=== PATIENT | male | born 1935 | race Caucasian/White ===

== ENCOUNTER 2018-08-04 17:48 | Emergency (ER) | payer MEDICARE, OTHER, SELFPAY ==
[2018-08-04 17:49] VITALS: BP 156/77; PULSE 84; RESP 18; TEMP 37.2; O2SAT 98; BMI 33.5
--- NOTE | 2018-08-04 18:44 | US_ITS ---
STUDY: VENOUS DOPPLER ULTRASOUND - LEFT LOWER EXTREMITY REASON FOR EXAM: Male, 83 years old. Swelling and redness of the calf. TECHNIQUE: Ultrasound evaluation of the deep vein system to include marcus-scale imaging and compression was performed. Marcus-scale imaging and Doppler sonographic evaluation, including duplex spectral analysis and qualitative color flow sonography, was performed. COMPARISON: None. FINDINGS: Common Femoral Vein: Normal compression, spontaneity and augmentation. Normal color Doppler. Common Femoral Vein/Greater Saphenous Junction: Normal compression. Femoral Proximal: Normal compression and color flow. Femoral Middle: Normal compression, spontaneity and augmentation. Normal color Doppler. Femoral Distal: Normal compression and color flow. Popliteal Vein: Normal compression, spontaneity and augmentation. Normal color Doppler. Posterior Tibial Vein: Normal compression Peroneal Vein: Normal compression US/Venous Duplex Imag/Limited/Uni IMPRESSION: Normal venous Doppler ultrasound of the lower extremity. Electronically Signed: Naheed Boggs MD at 19:55 EDT , Service support ,
--- NOTE | 2018-08-04 18:44 | ED.DCSUM_ITS ---
- ER Visit Summary Date of Service: 08/04/18 Chief Complaint: Left leg swelling and pain History of Present Illness: The patient is a 83 M who presents for 2 days of left lower leg swelling and pain. he has had gradually worsening swelling and redness of the left lower leg. He has had pain, worse when he starts ambulating or putting pressure on it, that gradually improves with movement. He denies any fever, chest pain, shortness of breath, or other complaints. He has no history of venous thromboembolism, recent surgery or travel, cancer. He is a former smoker. Patient has history of coronary artery disease status post stent, diabetes, hypertension. He had a cyst resected from the dorsum of the left foot 30 years ago but has had no problems with it since. Physical Examination: Vital signs: afebrile, hemodynamically stable, no hypoxia on room air General: well nourished, well developed, in no distress Skin: warm, dry, no rash, no pallor HEENT: normocephalic and atraumatic; PERRL, EOMI, moist mucous membranes Cardiovascular: regular rate and rhythm with soft systolic murmurs, 2+ pulses all distal extremities Respiratory: No increased work of breathing, lungs are clear to auscultation bilaterally, no rales, rhonchi or wheezing Abdominal: Abdomen is soft, nontender with normoactive bowel sounds, no guarding or rebound, no masses MSK: Moves all extremities, no deformities, normal strength, left lower leg is erythematous and warm with increased circumference compared to the right. 1+ pitting edema from the proximal lower leg to the dorsum of the foot. Well- healed scar on the dorsum of the distal foot. Sensation motor function intact. Neuro: Awake and alert, oriented ?4. No facial droop, sensation and motor function intact and symmetric Test Results: Abnormal Lab Results 08/04/18 08/04/18 08/04/18 18:58 18:58 18:58 WBC 7.9 RBC 3.35 L Hgb 10.4 L Hct 32.7 L MCV 97.6 H MCH 31.0 MCHC 31.8 L RDW 15.0 H RDW Differential 53.6 H Plt Count 309 MPV 11.4 Immature Gran % (Auto) 0.100 Neut % (Auto) 76.0 H Lymph % (Auto) 8.6 L [place] % (Auto) 10.7 H Eos % (Auto) 4.3 Baso % (Auto) 0.3 Absolute Neuts (auto) 6.0 Absolute Lymphs (auto) 0.68 L Total Counted Not Reportable PT 14.3 INR 1.1 APTT 34.9 Sodium 141 Potassium 4.0 Chloride 107 Carbon Dioxide 28.0 Anion Gap 6 BUN 30 H Creatinine 1.35 H Estim Creat Clear Calc 45.71 Est GFR (MDRD) Af Amer 65 Est GFR (MDRD) Non-Af 54 L BUN/Creatinine Ratio 22.2 H Glucose 130 H Lactic Acid Calcium 8.7 Total Bilirubin 0.30 AST 16 ALT 19 Alkaline Phosphatase 78 Total Protein 7.1 Albumin 3.2 Globulin 3.9 Albumin/Globulin Ratio 0.8 L Urine Color Urine Clarity Urine pH Ur Specific [place] Urine Protein Urine Glucose (UA) Urine Ketones Urine Occult Blood Urine Nitrite Urine Bilirubin Urine Urobilinogen Ur Leukocyte Esterase Urine RBC Urine WBC Ur Squamous Epith Cells Urine Bacteria Urine Mucus 08/04/18 08/04/18 18:58 19:08 WBC RBC Hgb Hct MCV MCH MCHC RDW RDW Differential Plt Count MPV Immature Gran % (Auto) Neut % (Auto) Lymph % (Auto) [place] % (Auto) Eos % (Auto) Baso % (Auto) Absolute Neuts (auto) Absolute Lymphs (auto) Total Counted PT INR APTT Sodium Potassium Chloride Carbon Dioxide Anion Gap BUN Creatinine Estim Creat Clear Calc Est GFR (MDRD) Af Amer Est GFR (MDRD) Non-Af BUN/Creatinine Ratio Glucose Lactic Acid 1.7 Calcium Total Bilirubin AST ALT Alkaline Phosphatase Total Protein Albumin Globulin Albumin/Globulin Ratio Urine Color Yellow Urine Clarity Clear Urine pH 5.0 Ur Specific [place] 1.015 Urine Protein 30 H Urine Glucose (UA) Normal Urine Ketones Negative Urine Occult Blood Negative Urine Nitrite Negative Urine Bilirubin Negative Urine Urobilinogen Normal Ur Leukocyte Esterase 25 H Urine RBC 0 SEEN Urine WBC 0 SEEN Ur Squamous Epith Cells 0 SEEN Urine Bacteria 0 SEEN Urine Mucus 0 SEEN Clinical Impression(s) from Imaging Studies Venous Duplex 08/04/18 18:44 IMPRESSION: Normal venous Doppler ultrasound of the lower extremity. Electronically Signed: Naheed Boggs MD at 19:55 EDT , Service support , Medications Given Discontinued Medications Cephalexin (Keflex) 500 mg PO X1 ONE Stop: 08/04/18 21:52 Last Admin: 08/04/18 22:04 Dose: 500 mg Emergency Department Course and Treatment: Patient was offered and declined any pain medication, as he is not currently in pain. Patient's presentation is concerning for DVT versus cellulitis. Ultrasound was obtained and was negative for DVT. Lab work obtained showing no leukocytosis, normal electrolytes, negative urine for infection, normal lactate. Patient's workup showed no signs of systemic infection. Given the localized cellulitis without any evidence of abscess, patient was started on Keflex and instructed to follow-up with his primary care doctor for reevaluation within 2 days. He is to return if he begins developing any systemic symptoms or is worsening rather than improvement of the lower extremity. Patient discharged home Treatment Plan: [] Disposition: [] Impression: Left lower extremity cellulitis This note was generated with [employer] dictation software. It may contain incorrect words, spelling, and punctuation that were not noted in review of the chart prior to signing ED Disposition - Plan for ED Patient: Disposition: Home or Assisted Living Chief Complaint: Cellulitis Instructions: Discharge Instructions for Cellulitis, ED Infec Skin Cellulitis Prescriptions: Cephalexin [Keflex] 500 mg PO Q6 #40 cap Referrals: Apurva Elkins [Primary Care Provider] - 2 Days Additional Instructions: Take the antibiotics for your skin infection as prescribed. Do not miss any doses. Take the full 10 days even if you are feeling better before then, unless a doctor tells you to stop. If you develop a high fever, began having any worsening symptoms, or do not notice improvement within 3 days, please return to the emergency department for reevaluation immediately. Follow-up with your doctor in 2 days for a recheck of your leg. If you have any worsening of your condition or any new concerning symptoms, please return immediately to the emergency department for another evaluation.
[2018-08-04 19:11] LABS: Bacteria 0 SEEN /hpf (None Seen); Mucous, Urine 0 SEEN /hpf (<or=2+); Red Blood Cells-Urine 0 SEEN /hpf (0-5); Squamous Epithelial Cells - UA 0 SEEN /hpf (0-5); White Blood Cells 0 SEEN /hpf (0-5)
[2018-08-04 19:13] LABS: Color, Urine Yellow (Yellow); Glucose, Dipstick Normal (Normal); Ketone-Dipstick Negative (Negative); Leukocyte Esterase-Dipstick 25 /ul (Negative); Nitrite-Dipstick Negative (Negative); Occult Blood-Urine Negative /ul (Negative); Protein-Dipstick 30 mg/dl (Negative); Specific Gravity, Urine 1.015 (1.002-1.030); Urine Bilirubin Dipstick Negative (Negative); Urine Clarity Clear (Clear); Urine Urobilinogen Normal (Normal)
[2018-08-04 19:26] LABS: ALB/GLOB Ratio 0.8 RATIO (0.9-2.4); AST(SGOT) 16 U/L (15-37); Alanine Aminotransfer ALT/SGPT 19 U/L (16-61); Albumin, Serum 3.2 g/dL (3.2-5.0); Alkaline Phosphatase 78 U/L (45-117); Anion Gap 6 (5-15); BUN 30 mg/dL (7-18); BUN/Creat Ratio 22.2 RATIO (10-20); Calcium,Total 8.7 mg/dL (8.5-10.1); Chloride 107 mmol/L (98-107); Creatinine, Serum 1.35 mg/dL (0.70-1.30); EST Glomerular Filtration Rate 54 mL/min (>60); Est Glom Filt Rate - Afr Amer 65 mL/min (>60); Estimated Creatinine Clearance 45.71 ml/min; Globulin 3.9 g/dL (2.2-4.2); Glucose 130 mg/dL (74-106); Protein, Total 7.1 g/dL (6.4-8.2); Sodium Level 141 mmol/L (136-145)
[2018-08-04 19:35] LABS: Lactic Acid 1.7 mmol/L (0.4-2.0)
[2018-08-04 19:39] LABS: Absolute Lymphocyte Count 0.68 X10^3/ul (0.83-4.51); Basophil# 0.02 X10^3/uL; Basophil% 0.3 % (0-1); Eosinophil# 0.34 X10^3/uL; Eosinophils% 4.3 % (0-5); Hematocrit 32.7 % (40-54); Hemoglobin 10.4 g/dl (13.0-16.5); Lymphocyte # 0.68 X10^3/ul (4.0); Lymphocyte % 8.6 % (19-41); Mean Corp Hgb Conc 31.8 g/gl (32-36); Mean Corpuscular Volume 97.6 fL (80-94); Mean Platelet Vol. 11.4 fl (6.2-12.0); Monocyte# 0.84 X10^3/uL; Monocyte% 10.7 % (0-10); Neutrophil # 5.98 X10^3/uL (2.7-7.7); Platelet Count 309 K/mm3 (150-450); RBC Distribution Width SD 53.6 fl (35.1-43.9); Red Blood Count 3.35 M/mm3 (4.6-6.2); White Blood Count 7.9 K/mm3 (4.4-11.0)
[2018-08-04 19:41] LABS: POSITIVE COUNT NO; POSITIVE DIFFERENTIAL NO; POSITIVE MORPHOLOGY NO
[2018-08-04 19:42] LABS: Partial Thromboplast Time 34.9 Seconds (24.1-36.2)
[2018-08-04 19:52] VITALS: TEMP 36.7
[2018-08-04 19:53] VITALS: BP 123/68; PULSE 83; RESP 16; O2SAT 98
[2018-08-04 19:54] LABS: International Normalized Ratio 1.1; Prothrombin Time (Protime)PT. 14.3 SECONDS (11.7-14.9)
[2018-08-04 20:06] VITALS: PULSE 77; RESP 18
[2018-08-04 21:25] VITALS: BP 123/65; PULSE 77; RESP 17; O2SAT 98
--- NOTE | 2018-08-04 21:51 | ED.DEP ---
ED Disposition - Plan for ED Patient: Chief Complaint: Cellulitis Instructions: Discharge Instructions for Cellulitis, ED Infec Skin Cellulitis Prescriptions: Cephalexin [Keflex] 500 mg PO Q6 #40 cap Referrals: Apurva Elkins [Primary Care Provider] - 2 Days Additional Instructions: Take the antibiotics for your skin infection as prescribed. Do not miss any doses. Take the full 10 days even if you are feeling better before then, unless a doctor tells you to stop. If you develop a high fever, began having any worsening symptoms, or do not notice improvement within 3 days, please return to the emergency department for reevaluation immediately. Follow-up with your doctor in 2 days for a recheck of your leg. If you have any worsening of your condition or any new concerning symptoms, please return immediately to the emergency department for another evaluation.
[2018-08-04] MEDS: Cephalexin 250 MG Capsule 500 MG PO (22:04)
[2018-08-04 22:16] VITALS: BP 131/78; PULSE 68; RESP 16; O2SAT 99
== END 2018-08-04 22:16 | disposition home or self-care (01) ==
PROVIDERS: Emergency Provider Emergency Medicine; Family Provider Nurse Practitioner; PCP Nurse Practitioner
DX: L03.116 Cellulitis of left lower limb (principal); I25.10 Atherosclerotic heart disease of native coronary artery without angina pectoris; I10 Essential (primary) hypertension; E11.9 Type 2 diabetes mellitus without complications; I25.2 Old myocardial infarction; Z79.82 Long term (current) use of aspirin; Z79.4 Long term (current) use of insulin; Z79.899 Other long term (current) drug therapy; Z95.5 Presence of coronary angioplasty implant and graft; Z87.891 Personal history of nicotine dependence
CPT/HCPCS: 80053; 81001; 83605; 85025; 85610; 85730; 87040; 87086; 87088; 93971; 99285; A4216

== ENCOUNTER 2019-05-16 11:17 | Observation (INO) | payer MEDICARE, OTHER, SELFPAY ==
[2018-10-11 09:19] VITALS: BMI 34.2
[2019-05-16] VITALS (13 sets, daily range): BP systolic 123–149; BP diastolic 48–75; PULSE 57–71; RESP 13–18; TEMP 36.3–36.9; O2SAT 98–100; BMI 34.3; BMI 33.8
--- NOTE | 2019-05-16 11:26 | EKG12_ITS ---
Test Reason : CP Blood Pressure : / mmHG Vent. Rate : 071 BPM Atrial Rate : 071 BPM P-R Int : 192 ms QRS Dur : 142 ms QT Int : 412 ms P-R-T Axes : 070 -47 066 degrees QTc Int : 447 ms Normal sinus rhythm Right bundle branch block Left anterior fascicular block Bifascicular block Abnormal ECG Confirmed by CARLTON VALDOVINOS, MARBIN ([id number]), editor in chief newspaper VLADISLAV HART ([id number]) on 05/17/2019 1:41:56 PM Referred By: Rupali Wu Confirmed By:MARBIN VINCENT MD
--- NOTE | 2019-05-16 11:26 | ED.VIS.GEN ---
History of Present Illness Chief Complaint: Chest Pain Detail of Chief Complaint: Intermittent since according to Informant: Patient, Significant Other Limited by: - - Memory impairment. There is no history of dementia Onset: Days - First episode of chest discomfort was according to the . Patient is unable to recall. Context: Sudden Onset Timing: Intermittent Quality: Squeezing discomfort Location: Midsternal Current Severity: Present late pain-free Maximum Severity: Moderate Worsened by: Unknown Relieved by: Unknown Associated Symptoms: Patient acknowledges dyspnea. confirms. Also nausea Narrative: Patient is an elderly male with history of coronary disease and stent RCA 2014. He is not a good informant secondary to memory impairment. He states it is a squeezing discomfort located in the middle of the chest. Based on what he and his told me this is associated with nausea and dyspnea. states he is visibly dyspneic. He presently denies discomfort. He states he had squeezing pain prior to placement of stent in his RCA. He does have history of hypertension, type 2 diabetes, hypercholesterolemia. He does not have orthopnea or PND. He denies black or maroon stool. He denies abdominal discomfort. 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 Comment: Antihyperlipidemic (6) Obstructive sleep apnea Status: Chronic (7) Bilateral carotid bruits Status: Chronic (8) Type II diabetes mellitus Status: Chronic (9) Chronic kidney disease, stage II (mild) Status: Chronic Past Medical History - Allergies and Home Meds Allergies/Adverse Reactions: Allergies metronidazole [From Flagyl] Adverse Reaction (Verified 05/16/19 11:20) Nausea Primary Care Physician: Apurva Elkins NP-C [Primary Care Provider] - Prior records reviewed: Yes - Placement of stent Surgical History: angioplasty - 10/2015 [place] Lives: Spouse/ Significant Other Smoking Status: Former smoker Alcohol: None - Family History Maternal Family History: Family History (Last Reviewed 10/11/18 @ 09:23 by Pretty Rachel) Brother Hypertension MVP (mitral valve prolapse) Family History: Reports: No pertinent history Paternal Family History: Family History (Last Reviewed 10/11/18 @ 09:23 by Pretty Rachel) Brother Hypertension MVP (mitral valve prolapse) Family History: Reports: No pertinent history Review of Systems General: Denies: Chills, Fever, Sweats Eyes: Denies: Visual changes - bilaterally, Blurred Vision - bilaterally, Diplopia ENT: Denies: Rhinorrhea, Sore throat Cardiovascular: Reports: Chest pain. Denies: Palpitations, Heart racing Respiratory: Reports: Dyspnea, Dyspnea on exertion. Denies: Cough, Orthopnea, Paroxysmal nocturnal dyspnea Gastrointestinal: Reports: Nausea. Denies: Abdominal pain, Vomiting, Diarrhea, Melena, Hematochezia Genitourinary: Denies: Dysuria, Hematuria, Frequency Musculoskeletal: Denies: Back pain, Extremity Pain Skin: Denies: Rash, Wounds Neurological: Denies: Headache, Weakness, Numbness Hematologic: Denies: Easy bruising, Easy bleeding Allergy: Denies: Uticaria, Swelling of the mouth Physical Exam Vital Signs/Narrative: Vital Signs Temp Pulse Resp BP Pulse Ox 05/16/19 11:18 97.4 F L 69 13 149/74 H 99 Inital Vital Signs reviewed: Yes General: Well nourished, Well developed, No Acute Distress Head: Normocephalic, Atraumatic Eyes: Perrl, EOMI. Negative for: Pale conjunctiva, Scleral icterus ENT: Moist mucous membranes, No rhinorrhea, - - Carotid bruit noted right and left Neck: Supple, Nontender Cardiovascular: Regular rate, Regular rhythm, No murmurs, Normal S1, Normal S2 Respiratory: No distress, CTA bilaterally, Chest nontender Abdomen: Soft, Nontender, Nondistended, Normal bowel sounds Back: Nontender, Normal Inspection Extremities: Nontender, No edema Skin: Normal color, No rash Neurological: Alert, Oriented x3, Cranial nerves II-XII grossly intact, Normal Strength, Normal Sensation, - - Patient does not know his age. He does not know the month. states this is not new. Psychological: Normal affect, Normal Mood Diagnostic/Tx/Re-eval Impressions Chest X-Ray 05/16/19 11:40 IMPRESSION: Hyperinflation. Mild increased markings at the lung bases suggestive of atelectasis. Electronically Signed: Filipe Anguiano, at 12:28 EDT , Service support , 05/16/19 11:40 Chest PA and Lateral [RAD] Stat Laboratory Results 05/16/19 05/16/19 11:30 11:30 WBC 6.3 RBC 3.46 L Hgb 10.8 L Hct 33.4 L MCV 96.5 H MCH 31.2 MCHC 32.3 RDW 15.8 H RDW Differential 55.6 H Plt Count 237 MPV 11.5 Immature Gran % (Auto) 0.000 Neut % (Auto) 77.5 H Lymph % (Auto) 13.6 L [place] % (Auto) 4.9 Eos % (Auto) 3.5 Baso % (Auto) 0.5 Absolute Neuts (auto) 4.9 Absolute Lymphs (auto) 0.86 Total Counted Not Reportable Sodium 142 Potassium 4.3 Chloride 112 H Carbon Dioxide 27.0 Anion Gap 3 L BUN 40 H Creatinine 1.36 H Estim Creat Clear Calc 44.60 Est GFR (MDRD) Af Amer 65 Est GFR (MDRD) Non-Af 53 L BUN/Creatinine Ratio 29.4 H Glucose 136 H Calcium 9.0 Troponin I < 0.015 - Rhythm Strip Rhythm Strip: Sinus Rhythm Rate: 68 Ectopy: PAC(s) - EKG Initial EKG Interpretation: Sinus Rhythm - TN interval 292 ms. QRS durations 142 ms. QRS morphology is consistent with a right bundle branch block and probable left anterior fascicular block. The right bundle branch block is new since November 12, 2016. Ventricular rate is 71. - Medical Decision Making With multiple risk factors and history of coronary disease and description of midsternal chest tightness associated with dyspnea, dyspnea on exertion and nausea and similar to prior coronary disease patient will require further testing as an inpatient. Will contact his manager storage Dr. Moustapha Yates once all laboratory tests are resulted. Since nor the patient recalls whether he took his aspirin this morning he was given aspirin in department. Differential diagnosis angina, non-STEMI, noncardiac chest pain Patient's laboratory results revealed mild anemia and elevated creatinine. Dr. Yates his manager storage was paged. The hospitalist was paged. Since patient is pain-free normal troponin PCU status for chest pain evaluation/rule out. ED Disposition - Plan for ED Patient: Disposition: Acute Care Hospital [facility] Diagnosis: Substernal chest pain, History of coronary artery disease, History of type 2 diabetes mellitus, History of hypertension, History of hypercholesterolemia, Anemia, unspecified, Renal insufficiency Referrals: Apurva Elkins NP-C [Primary Care Provider] -
[2019-05-16] MEDS: Aspirin 81 MG TAB.CHEW 324 MG PO (11:36)
--- NOTE | 2019-05-16 11:40 | RAD_ITS ---
STUDY: X-RAY CHEST REASON FOR EXAM: Male, 84 years old. Chest pain. TECHNIQUE: PA and lateral views of the chest. COMPARISON: Comparison is made with prior study dated May 10, 2017. FINDINGS: EKG electrodes are seen. Mild degree of increased markings at the lung bases suggestive of atelectasis. Hyperinflation. There is no demonstrated pleural abnormality. Normal size heart. Normal mediastinum and jose. Normal visualized pulmonary arteries. There is atherosclerotic tortuosity of the aortic arch and descending thoracic aorta. There are diffuse degenerative changes of the visualized thoracic spine. Normal visualized ribs, clavicles, and shoulders. There is no demonstrated abnormality of the visualized soft tissue structures of the upper abdomen. RAD/Chest PA and Lateral IMPRESSION: Hyperinflation. Mild increased markings at the lung bases suggestive of atelectasis. Electronically Signed: Filipe Anguiano, at 12:28 EDT , Service support ,
[2019-05-16 11:42] LABS: Absolute Lymphocyte Count 0.86 X10^3/ul (0.83-4.51); Absolute Neutrophil Count 4.9 X10^3/uL (2.0-7.7); Basophil# 0.03 X10^3/uL; Basophil% 0.5 % (0-1); Eosinophil# 0.22 X10^3/uL; Eosinophils% 3.5 % (0-5); Hematocrit 33.4 % (40-54); Hemoglobin 10.8 g/dl (13.0-16.5); Lymphocyte # 0.86 X10^3/ul (4.0); Lymphocyte % 13.6 % (19-41); Mean Corp Hgb Conc 32.3 g/gl (32-36); Mean Corpuscular Hgb 31.2 pg (27.0-32.0); Mean Corpuscular Volume 96.5 fL (80-94); Mean Platelet Vol. 11.5 fl (6.2-12.0); Monocyte# 0.31 X10^3/uL; Monocyte% 4.9 % (0-10); Neutrophil # 4.91 X10^3/uL (2.7-7.7); Neutrophil % 77.5 % (47-70); Platelet Count 237 K/mm3 (150-450); RBC Distribution Width CV 15.8 % (11.6-14.6); RBC Distribution Width SD 55.6 fl (35.1-43.9); Red Blood Count 3.46 M/mm3 (4.6-6.2); White Blood Count 6.3 K/mm3 (4.4-11.0)
[2019-05-16 11:43] LABS: POSITIVE COUNT NO; POSITIVE DIFFERENTIAL NO; POSITIVE MORPHOLOGY NO
[2019-05-16 12:01] LABS: Anion Gap 3 (5-15); BUN 40 mg/dL (7-18); BUN/Creat Ratio 29.4 RATIO (10-20); Chloride 112 mmol/L (98-107); Creatinine, Serum 1.36 mg/dL (0.70-1.30); EST Glomerular Filtration Rate 53 mL/min (>60); Est Glom Filt Rate - Afr Amer 65 mL/min (>60); Glucose 136 mg/dL (74-106); Potassium 4.3 mmol/L (3.5-5.1); Sodium Level 142 mmol/L (136-145)
--- NOTE | 2019-05-16 12:59 | HP.PCM_ITS ---
History of Present Illness Date of Admission: 05/16/19 Chief Complaint: chest pain The patient is a 84 year old M with a past medical history as listed which includes CAD status post bare-metal stent placement to the RCA in 2014. He was admitted through the ED on 05/16/2019 with a complaint of chest pain. He states chest pain that started about 4 days prior to admission was retrosternal and pressure-like. He had associated shortness of breath and said chest pain worsened with mild exertion. He denied any palpitations or dizziness or lower extremity swelling. Review of systems otherwise negative. On admission in the ED, vitals were stable and chest x-ray showed only hyperinflation. EKG showed no acute ST changes and showed an incomplete right bundle branch block which was present from last year. Initial troponin was negative. He has been admitted to be managed for chest pain to rule out ACS. [] Past Medical History Past Medical History (Chronic Problems): Chronic Problems (Last Reviewed 10/11/18 @ 09:23 by Pretty Rachel) Essential hypertension (Chronic) Atherosclerotic heart disease of [place] coronary artery without angina pectoris (Chronic) PVD (peripheral vascular disease) (Chronic) Nonrheumatic aortic (valve) stenosis (Chronic) Anemia, unspecified (Chronic) Abnormal nuclear stress test (Chronic) half-way use of drug (Chronic) Antihyperlipidemic Obstructive sleep apnea (Chronic) Stented coronary artery (Chronic ~10/2015) PTCA with BMS to RCA 10/2015 Bilateral carotid bruits (Chronic) Type II diabetes mellitus (Chronic) Chronic kidney disease, stage II (mild) (Chronic) Hyperlipidemia (Chronic) Medical History: Medical History (Last Reviewed 10/11/18 @ 09:23 by Pretty Rachel) Essential hypertension (Chronic) I10 Atherosclerotic heart disease of [place] coronary artery without angina pectoris (Chronic) I25.10 PVD (peripheral vascular disease) (Chronic) I73.9 Nonrheumatic aortic (valve) stenosis (Chronic) I35.0 Anemia, unspecified (Chronic) D64.9 Abnormal nuclear stress test (Chronic) 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.899 Antihyperlipidemic Obstructive sleep apnea (Chronic) G47.33 Bilateral carotid bruits (Chronic) R09.89 Type II diabetes mellitus (Chronic) E11.9 Hyperlipidemia (Chronic) E78.5 History of GI bleed Z87.19 History of kidney stones Z87.442 ASHD (arteriosclerotic heart disease) (Inactive) I25.10 PCI with BMS to RCA 2014; Hypertension (Inactive) I10 Allergies metronidazole [From Flagyl] Adverse Reaction (Verified 05/16/19 11:20) Nausea Home Medications: Ambulatory Orders Medication Instructions Recorded Insulin Detemir [Levemir FlexPen] 5 units SC BREAKFAST 11/22/15 Linagliptin [Tradjenta] 5 mg PO QHS 11/22/15 Nitroglycerin (INPATIENT USE) 0.4 mg SUBLINGUAL Q5M PRN 11/22/15 [Nitrostat] Allopurinol [Zyloprim] 300 mg PO QHS 12/16/16 atorvastatin 80 mg tablet 80 mg PO QHS #90 tab 12/02/17 aspirin 81 mg tablet,delayed 81 mg PO DAILY 12/03/17 release furosemide 20 mg tablet 20 mg PO QDAY 12/03/17 metoprolol tartrate 25 mg tablet 25 mg PO BID #180 tab 12/21/17 colchicine 0.6 mg tablet 0.6 mg PO DAILY PRN 10/11/18 lisinopril 20 mg tablet 20 mg PO DAILY tab 10/11/18 metformin 1,000 mg tablet 500 mg PO BID tab 10/11/18 Aspirin/Acetaminophen/Caffeine 1 ea PO DAILY PRN PRN 05/16/19 [Excedrin Extra Strength Caplet] Donepezil HCl [Aricept] 10 mg PO DAILY 05/16/19 Surgical History: Surgical History (Last Reviewed 10/11/18 @ 09:23 by Pretty Rachel) Stented coronary artery (Chronic) Onset Date: ~10/2015 Z95.5 PTCA with BMS to RCA 10/2015 History of repair of rotator cuff Z98.890 Surgical History: angioplasty - 10/2015 [place] Psychiatric History: No pertinent psych hx Lives: Spouse/ Significant Other Smoking Status: Former smoker Alcohol: None - *Family History Maternal Family History: Family History (Last Reviewed 10/11/18 @ 09:23 by Pretty Rachel) Brother Hypertension MVP (mitral valve prolapse) History Items: No pertinent history Paternal Family History: Family History (Last Reviewed 10/11/18 @ 09:23 by Pretty Rachel) Brother Hypertension MVP (mitral valve prolapse) History Items: No pertinent history Review of Systems Constitutional: Denies: Chills, Fever, Malaise, Weakness, Weight Change, Fatigue Eyes: Denies: Blurred vision HEENT: Denies: Head Aches, Sinus Congestion, Sinus Drainage Cardiovascular: Denies: Chest Pain, Chest Pressure, Chest Tightness, Heaviness, Light Headedness, Orthopnea, Palpitations Respiratory: Denies: Cough, Shortness of Breath, Shortness of breath at rest, Shortness of breath upon exertion, Sputum production Gastrointestinal: Denies: Abdominal Pain, Nausea, Vomiting Genitourinary: Denies: Dysuria Musculoskeletal: Denies: Joint Pain, Joint Tenderness Skin: Denies: Rash, Wounds Neurological: Denies: Numbness, Tingling, Focal weakness Psychiatric: Denies: Anxiety, Depression, Homicidal Ideations, Suicidal Ideations Hematologic/ Lymphatic: Denies: Easy Bruising, Easy Bleeding VTE Information - Inpt Only VTE Present on Admission: No VTE Pharm Prophylaxis ordered?: Yes Patient Problems: Active and Suspected Problems (Last Reviewed 10/11/18 @ 09:23 by Pretty Rachel) Substernal chest pain (Acute) History of coronary artery disease (Acute) History of type 2 diabetes mellitus (Acute) History of hypertension (Acute) History of hypercholesterolemia (Acute) Renal insufficiency (Acute) - Physical Exam General: Alert, Cooperative, No apparent distress, - - mildly confused, but able to answer questions HEENT: Atraumatic, PERRLA, EOMI, Normocephalic Neck: Supple, No JVD, Negative Carotid Bruits Lungs: Clear to auscultation, Normal air movement Cardiovascular: Regular rate, Regular Rhythm, Normal S1, Normal S2, No murmurs Abdomen: Bowel Sounds Present, Soft, Non Tender, Non-Distended, No Hepato- splenomegaly Extremities: No clubbing, No cyanosis, No edema, Capillary Refill Less than 3 Seconds Skin: No rashes, No breakdown Musculoskeletal: No Tenderness to Palpation of Joints or Extremities Lymphatic: No Cervical, Supraclavicular, or Inguinal Adenopathy Neurological: Cranial nerves II-XII grossly intact, Neuro grossly intact, Motor Exam 5/5 strength throughout Psych/Mental Status: Normal Affect, Appropriate Vital Signs Temp Pulse Resp BP Pulse Ox 97.4 F L 61 18 135/72 H 100 05/16/19 11:18 05/16/19 12:13 05/16/19 12:13 05/16/19 12:13 05/16/19 12:13 Oxygen Flow Rate (L/min) 2 Oxygen Delivery Method Nasal Cannula Weight: 246 lb 4.101 oz Body Mass Index (BMI) 34.3 Finger Stick Blood Glucose 154 Laboratory Tests Past 24 Hrs 05/16/19 05/16/19 11:30 11:30 WBC 6.3 RBC 3.46 L Hgb 10.8 L Hct 33.4 L MCV 96.5 H MCH 31.2 MCHC 32.3 RDW 15.8 H RDW Differential 55.6 H Plt Count 237 MPV 11.5 Immature Gran % (Auto) 0.000 Neut % (Auto) 77.5 H Lymph % (Auto) 13.6 L Gibson % (Auto) 4.9 Eos % (Auto) 3.5 Baso % (Auto) 0.5 Absolute Neuts (auto) 4.9 Absolute Lymphs (auto) 0.86 Total Counted Not Reportable Sodium 142 Potassium 4.3 Chloride 112 H Carbon Dioxide 27.0 Anion Gap 3 L BUN 40 H Creatinine 1.36 H Estim Creat Clear Calc 44.60 Est GFR (MDRD) Af Amer 65 Est GFR (MDRD) Non-Af 53 L BUN/Creatinine Ratio 29.4 H Glucose 136 H Calcium 9.0 Troponin I < 0.015 Diagnostic Data Chest X-Ray 05/16/19 11:40 IMPRESSION: Hyperinflation. Mild increased markings at the lung bases suggestive of atelectasis. Electronically Signed: Filipe Anguiano, at 12:28 EDT , Service support , Assessment/Plan All Active Problems (Last Reviewed 10/11/18 @ 09:23 by Pretty Rachel) Substernal chest pain (Acute) History of coronary artery disease (Acute) History of type 2 diabetes mellitus (Acute) History of hypertension (Acute) History of hypercholesterolemia (Acute) Renal insufficiency (Acute) Carbon monoxide poisoning from motor vehicle exhaust (Acute) Troponin I above reference range (Acute) 84 y/o male admitted with a complaint of chest pain. 1. Chest pain to r/o ACS * Admit to PCU with telemetry * Cycle troponins. * Continue aspirin and sublingual nitroglycerin. 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 Will await cardiology recs. * 2. CAD status post bare-metal stent in RCA * RCA stent done in 2014. * On aspirin, statin, metoprolol * 3. Diabetes mellitus: * On metformin and insulin Levemir 5 units with breakfast as well as linagli ptin. * Insulin Sliding scale. Accu-Cheks before meals at bedtime. 4. Dementia: On donepezil 5. CKD stage III: Creatinine is 1.36 which is around baseline. Will monitor. DVT prophylaxis: Lovenox renal dose Code status: full code * Patient counseled extensively about different types of CODE STATUS including full code, DNR CCA and DNR CCA. Patient elects to be full code. Total mlal-jc-llaf time 17 minutes. Code Visit OBSV E&M: 45950 Initial observation care L3 Procedures: 26964 Advncd Care Plan 30 Min
--- NOTE | 2019-05-16 13:00 | ED.RN ---
PER PT HAS DEMENTIA, CURRENTLY AT BASELINE, CANNOT REMEMBER CURRENT MONTH. ALSO CONCERNED PT IS NOT TAKING HOME MEDS CORRECTLY.
--- NOTE | 2019-05-16 13:20 | CASEMGMT ---
RN CM Assessment Introduced role of RN CM to patient and Nikki at bedside.? Patient is alert, oriented and able?to participate in RN CM Assessment. ?Care providers, pharmacy, and demographics verified. Presentation: CP, Nausea, Dyspnea, Dizziness. H/o stents. Admit Dx: CP Re-Admit: No Barriers/Issues: None PCP: Apurva Elkins Specialists: Cardio- Dr Yates Preferred Pharmacy: [facility] Insurance: [employer], [facility] Rx Benefit:?Yes LNOK: Nikki Ash LW/HPOA: Yes both, Hpoa- Nikki Ash Living Arrangements:?Lives with in a 2 story home, Bedroom on Lower Level. 1-2 steps to enter. ADL?s: Independent with ambulation and ADLs Transportation: Patient drives, upon DC DME: None HHC: None SNF: Past at [facility] Goal: Home, does not think will have any needs. Denies questions or concerns, Aware CM remains available for any emerging needs. DC PLAN: Home with no anticipated needs identified at this time. Lupe Kidd RNCM
--- NOTE | 2019-05-16 13:54 | EKG12_ITS ---
Test Reason : CP Blood Pressure : / mmHG Vent. Rate : 053 BPM Atrial Rate : 053 BPM P-R Int : 202 ms QRS Dur : 136 ms QT Int : 440 ms P-R-T Axes : 072 -47 025 degrees QTc Int : 412 ms Sinus bradycardia Right bundle branch block Left anterior fascicular block Bifascicular block Minimal voltage criteria for LVH, may be normal variant Abnormal ECG When compared with ECG of 16-MAY-2019 11:18, MANUAL COMPARISON REQUIRED, DATA IS UNCONFIRMED Confirmed by MOMO HARRISON ([id number]), assignment editor VLADISLAV HART ([id number]) on 05/19/2019 1:59:47 PM Referred By: Rupali Wu Confirmed By:MOMO HARRISON
--- NOTE | 2019-05-16 14:52 | CASEMGMT ---
As per admitting manager of selection and assessment, pt has LW/POA and will bring them in. Pt's POA is Petra Jordan. EKTA Blankenship
[2019-05-16 16:01] LABS: Bedside Glucose 88 mg/dL (70-110)
[2019-05-16] MEDS: metFORMIN HCl 500 MG Tablet PO (16:51)
--- NOTE | 2019-05-16 18:02 | PCM.CONS.C ---
Problem List (1) Substernal chest pain Status: Acute (2) History of coronary artery disease Status: Chronic (3) Stented coronary artery Status: Chronic Comment: PTCA with BMS to RCA 10/2015 (4) Aortic valve stenosis Status: Chronic Qualifiers: Cardiac valve disease etiology: nonrheumatic Qualified Code(s): I35.0 - Nonrheumatic aortic (valve) stenosis (5) History of hypercholesterolemia Status: Chronic (6) History of hypertension Status: Chronic (7) History of type 2 diabetes mellitus Status: Chronic (8) Bilateral carotid bruits Status: Chronic Reason for Consult Date of Consultation: 05/16/19 History of Present Illness: The patient is a 84 year old white male with a past medical history of hyperlipidemia, hypertension, CAD, RCA PCI, aortic valve stenosis, and diabetes mellitus who presents for evaluation of chest discomfort. The patient states that today he had sternal related chest discomfort. He appears to have difficulty describing it although states it was a discomfort that made him stop and rest and not proceed with his activities. He does not recall any acute dyspnea, nausea, or emesis. There was no report of diaphoresis. However his spouse gave to the emergency department staff history that he described it at the time as a squeezing sensation or pressure sensation as well as appearing nauseated and having dyspnea. There was no report of loss of consciousness. He believes he has been doing well until today when this event happened. Based upon this event he was brought to the emergency department for further evaluation. His troponin I level is negative. His ECG appeared to demonstrate sinus rhythm with a left axis deviation with a right bundle branch block pattern and a left anterior fascicular block pattern. His chest x-ray appeared to demonstrate no acute changes. He was placed in the PCU for further evaluation care. He appears to be resting comfortably at this time. [] Past Medical History Allergies/Adverse Reactions: Allergies metronidazole [From Flagyl] Adverse Reaction (Verified 05/16/19 11:20) Nausea Home Medications: Ambulatory Orders Medication Instructions Recorded Insulin Detemir [Levemir FlexPen] 5 units SC BREAKFAST 11/22/15 Linagliptin [Tradjenta] 5 mg PO QHS 11/22/15 Nitroglycerin (INPATIENT USE) 0.4 mg SUBLINGUAL Q5M PRN 11/22/15 [Nitrostat] Allopurinol [Zyloprim] 300 mg PO QHS 12/16/16 atorvastatin 80 mg tablet 80 mg PO QHS #90 tab 12/02/17 aspirin 81 mg tablet,delayed 81 mg PO DAILY 12/03/17 release furosemide 20 mg tablet 20 mg PO QDAY 12/03/17 metoprolol tartrate 25 mg tablet 25 mg PO BID #180 tab 12/21/17 colchicine 0.6 mg tablet 0.6 mg PO DAILY PRN 10/11/18 lisinopril 20 mg tablet 20 mg PO DAILY tab 10/11/18 metformin 1,000 mg tablet 500 mg PO BID tab 10/11/18 Aspirin/Acetaminophen/Caffeine 1 ea PO DAILY PRN PRN 05/16/19 [Excedrin Extra Strength Caplet] Donepezil HCl [Aricept] 10 mg PO DAILY 05/16/19 Past Medical History (Chronic Problems): Chronic Problems (Last Reviewed 10/11/18 @ 09:23 by Pretty Rachel) History of coronary artery disease (Chronic) History of type 2 diabetes mellitus (Chronic) History of hypertension (Chronic) History of hypercholesterolemia (Chronic) Aortic valve stenosis (Chronic) Essential hypertension (Chronic) Atherosclerotic heart disease of [place] coronary artery without angina pectoris (Chronic) PVD (peripheral vascular disease) (Chronic) Nonrheumatic aortic (valve) stenosis (Chronic) Anemia, unspecified (Chronic) Abnormal nuclear stress test (Chronic) 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) Antihyperlipidemic Obstructive sleep apnea (Chronic) Stented coronary artery (Chronic ~10/2015) PTCA with BMS to RCA 10/2015 Bilateral carotid bruits (Chronic) Type II diabetes mellitus (Chronic) Chronic kidney disease, stage II (mild) (Chronic) Hyperlipidemia (Chronic) Surgical History: angioplasty - 10/2015 [place] Psychiatric History: No pertinent psych hx - *Family History Maternal Family History: Family History (Last Reviewed 10/11/18 @ 09:23 by Pretty Rachel) Brother Hypertension MVP (mitral valve prolapse) History Items: No pertinent history Paternal Family History: Family History (Last Reviewed 10/11/18 @ 09:23 by Pretty Rachel) Brother Hypertension MVP (mitral valve prolapse) History Items: No pertinent history Lives: Spouse/ Significant Other Smoking Status: Former smoker Alcohol: None Drugs: None Review of Systems - Review of Systems General: Denies: Fever, Night Sweats, Fatigue Cardiovascular: Reports: Chest Discomfort, Shortness of Breath. Denies: Orthopnea, PND, Peripheral Edema, Palpitations, Lightheadedness, Dizziness, Near Syncope, Syncope Respiratory: Reports: Shortness of Breath. Denies: Cough, Sputum Production, Hemoptysis Gastrointestinal: Reports: Nausea. Denies: Hematemesis, Hematochezia, Melena Genitourinary: Denies: Dysuria, Hematuria Skin: Denies: Rash Subjectve: This is an 84-year-old white male who appears resting comfortably at the moment in no acute distress. Objective: Vital Signs Temp Pulse Resp BP Pulse Ox 98.3 F 62 16 135/57 H 98 05/16/19 14:10 05/16/19 14:10 05/16/19 14:10 05/16/19 14:10 05/16/19 14:56 Oxygen Flow Rate (L/min) 2 Oxygen Delivery Method Nasal Cannula Weight: 242 lb 8.136 oz Body Mass Index (BMI) 33.8 Finger Stick Blood Glucose 154 General: Awake, Alert, Oriented x 3, Cooperative, No Acute Distress HEENT: Atraumatic, Normocephalic, PERRL, EOMI, Sclera Non Icteric Oral: Moist Mucosa Neck: Supple, Good ROM, No JVD Lungs: Clear to auscultation Cardiovascular: Regular Rhythm, Normal S1, Normal S2 Murmur Murmur: Grade 3/6, Harsh, Mid Systolic, LLSB, LVOT, Sternal Notch Vascular: Robert Carotid Artery Bruits Abdomen: Bowel Sounds Present, Soft, Non Tender Extremities: No Cyanosis, No Clubbing, No edema Neurological: No Focal Motor or Sensory Deficit Psych/Mental Status: Appropriate 05/16/19 11:30: WBC 6.3, RBC 3.46 L, Hgb 10.8 L, Hct 33.4 L, MCV 96.5 H, MCH 31.2, MCHC 32.3, RDW 15.8 H, RDW Differential 55.6 H, Plt Count 237, MPV 11.5, Immature Gran % (Auto) 0.000, Neut % (Auto) 77.5 H, Lymph % (Auto) 13.6 L, Craig % (Auto) 4.9, Eos % (Auto) 3.5, Baso % (Auto) 0.5, Absolute Neuts (auto) 4.9, Total Counted Not Reportable 05/16/19 11:30: Sodium 142, Potassium 4.3, Chloride 112 H, Carbon Dioxide 27.0, Anion Gap 3 L, BUN 40 H, Creatinine 1.36 H, Est GFR (MDRD) Af Amer 65, Est GFR (MDRD) Non-Af 53 L, BUN/Creatinine Ratio 29.4 H, Glucose 136 H, Calcium 9.0, Troponin I < 0.015 05/16/19 14:33: Troponin I < 0.015 Rhythm: Sinus rhythm EKG: As noted above ECHO: 11-11-16: Left ventricle normal with an LVEF 65%; decreased diastolic compliance; mild biatrial enlargement; trivial MR; trivial TR; mild aortic valve stenosis; trivial NV; estimated RV systolic pressure of 33 mmHg Stress Test: 11-12-16: Dobutamine stress echocardiogram: Reported as negative for stress-induced myocardial ischemia. 06-02-15: Pharmacologic stress nuclear imaging study: Considered negative for obvious stress-induced myocardial ischemia; basal inferior infarct could not be completely excluded; gated LVEF of 60% Cardiac Cath: 11-06-15: [facility]: Elevated left ventricular end-diastolic pressure compatible decreased diastolic compliance; normal left ventricle with an LVEF 55%; left main normal; LAD with proximal calcification; 10 to 25% eccentric appearing stenosis; mid 10 to 25% eccentric appearing stenosis; LCx with proximal 25 to 50% hazy appearing stenosis x2; RCA being a very large dominant vessel with a proximal 25% irregular-appearing stenosis and a mid 90% discrete hazy appearing stenosis followed by 10 to 25% of 25 to 50% eccentric appearing stenosis; aortic valve calcified sclerotic with no hemodynamic evidence suggestive of hemodynamically significant aortic valve stenosis on the LV pullback procedure PCI: 11-06-15: [facility]: PTCA/BMS (5 mm x 13 mm ultra Rx stent) to the mid RCA CXR: As noted above: Please see official report Carotid artery duplex study: 03-17-16: Reported as mild: Less than 50%: Stenosis bilaterally Assessment/Plan 1. Substernal chest pain The patient has had substernal chest pain. At the present time his relatively protocol has been negative by cardiac enzymes. He has had no new acute ECG changes. He will continue cardiac rhythm monitoring, and some follow-up, and ECG follow-up. He will continue medical therapy as deemed appropriate. This will include the addition of antiplatelet therapy. He will be scheduled for further evaluation with diagnostic cardiac catheterization to reassess his coronary anatomy for the need for additional revascularization therapy. The procedure and risks were discussed with the patient he was agreeable to this approach. 2. CAD status post RCA PCI/BMS The patient has undergone previous noninvasive and invasive evaluation as described above. At the present time based upon the patient's relatively nonexertional symptoms and concerns that this may represent his underlying CAD status it was felt reasonable that the patient be reassessed in the cardiac catheterization laboratory. As noted above the procedure and risks were discussed with the patient and he was agreeable to this approach. In the meantime he will continue medical management. 3. Aortic valve stenosis The patient does have an element of aortic valve stenosis. This can be reassessed noninvasively with a transthoracic echocardiogram. 4. Hyperlipidemia The patient will continue medical management with adjustment as needed. 5. Hypertension The patient will continue medical therapy. His antihypertensive regimen will be adjusted as needed. 6. Diabetes mellitus The patient will continue under the care of internal medicine. 7. Carotid artery disease The patient does have a previous carotid artery duplex study demonstrating bilateral carotid artery stenosis which was reported as mild at the time. This can be reassessed for any significant change with noninvasive studies as deemed appropriate. Comment: The patient's case has been discussed and reviewed with the patient and Dr. Sue of the [facility] emergency department staff. This note was generated using a voice recognition system and there may be incorrect words, spelling or punctuation that were not noted when reviewing the office note prior to saving.
--- NOTE | 2019-05-16 18:18 | ECHOCS_ITS ---
Reason For Study: Murmur Procedure This was a 2D Doppler, Color Flow transthoracic echocardiogram. The study was technically difficult. Contrast injection was performed. Exam performed portable in patient room. Left Ventricle Normal LV size. Left ventricular systolic function is normal. The estimated ejection fraction is 60 %. There is evidence of diastolic dysfunction. No regional wall motion abnormalities noted. Right Ventricle Normal RV size. Normal systolic function. Atria The left atrium is mildly enlarged. Normal right atrium. No doppler evidence for ASD. Mitral Valve There is no mitral annular calcification. Mild focal mitral valve calcification of the anterior leaflet. Mild (1+) mitral valve insufficiency. Tricuspid Valve Normal tricuspid valve. Mild to moderate (1-2+) tricuspid valve insufficiency. Right ventricular systolic pressure estimated to be 40 mmHg. Aortic Valve Trisinus/trileaflet aortic valve. Moderate diffuse aortic valve calcification. Mild to moderate aortic stenosis. Trivial aortic valve insufficiency. Pulmonic Valve The pulmonic valve is not well visualized. Mild (1+) pulmonic valve insufficiency. Great Vessels Normal sized aortic root. Calcified aortic root. Pericardium/Pleural No pericardial effusion. Medication Diluted definity 3ml given slow IV push to enhance endocardial definition. MMode/2D Measurements & Calculations LVIDd: 5.4 cm IVSd: 0.90 cm LVOT diam: 2.0 cm LVIDs: 3.0 cm LVPWd: 1.1 cm FS: 45.5 % LVOT area: 3.3 cm2 Ao root diam: 3.5 cm LAV(MOD-bp): 80.2 ml LVAd ap4: 41.7 cm2 ACS: 1.2 cm LAV(MOD-bp) Indexed: 35.1 ml/m2 EDV(MOD-sp4): 161.9 ml LAV(MOD-sp2): 75.9 ml EDV(sp4-el): 162.5 ml LAV(MOD-sp4): 83.3 ml LVAs ap4: 20.5 cm2 ESV(MOD-sp4): 53.1 ml ESV(sp4-el): 53.0 ml EF(MOD-sp4): 67.2 % EF(sp4-el): 67.4 % SV(MOD-sp4): 108.8 ml SV(sp4-el): 109.5 ml Aortic Valve Planimetry: 1.2 cm2 LA A4 area: 24.5 cm2 RA A4 area: 16.4 cm2 Time Measurements MV dec time: 0.33 sec Doppler Measurements & Calculations MV E max magen: 65.2 cm/sec Lat Peak E' Magen: 7.0 cm/sec Med Peak E' Magen: 6.3 cm/sec MV A max magen: 106.1 cm/sec E/E' lat: 9.3 E/E' med: 10.3 MV E/A: 0.62 MV V2 max: 109.8 cm/sec MV P1/2t max magen: 78.0 cm/sec Ao V2 max: 324.6 cm/sec MV max P.8 mmHg MV P1/2t: 74.0 msec Ao max P.2 mmHg MV V2 mean: 51.9 cm/sec MV dec slope: 308.6 cm/sec2 Ao V2 mean: 197.4 cm/sec MV mean P.3 mmHg MVA(P1/2t): 3.0 cm2 Ao mean P.0 mmHg MV V2 VTI: 31.9 cm Ao V2 VTI: 75.8 cm MVA(VTI): 3.2 cm2 JOHN(I,D): 1.3 cm2 JOHN(V,D): 1.2 cm2 LV V1 max: 121.2 cm/sec SV(LVOT): 101.7 ml PA V2 max: 105.9 cm/sec LV V1 max P.9 mmHg LV V1 mean P.5 mmHg LV V1 mean: 86.1 cm/sec LV V1 VTI: 31.1 cm TR max magen: 306.0 cm/sec TR max P.4 mmHg Interpretation Summary The study was technically difficult. Contrast injection was performed. Left ventricular systolic function is normal. The estimated ejection fraction is 60 %. The left atrium is mildly enlarged. Mild focal mitral valve calcification of the anterior leaflet. Mild (1+) mitral valve insufficiency. Mild to moderate (1-2+) tricuspid valve insufficiency. Mild to moderate aortic stenosis. Trivial aortic valve insufficiency. Mild (1+) pulmonic valve insufficiency. Calcified aortic root. Right ventricular systolic pressure estimated to be 40 mmHg. There is evidence of diastolic dysfunction. Ordering Physician: Moustapha Yates Referring Physician: Rupali Wu Performed By: Homar Arcos [facility]
[2019-05-16] MEDS: Clopidogrel Bisulfate 300 MG Tablet PO (18:58)
[2019-05-16] MEDS: 0.9% NaCl Peripheral Flush Adult/Peds IV (20:11)
[2019-05-16] MEDS: 0.9% Normal Saline 1,000 ML 75 ML IV (20:12)
[2019-05-16] MEDS: Atorvastatin Calcium 80 MG Tablet PO (22:25)
[2019-05-16] MEDS: LINAGLIPTIN 5 MG TABLET PO (22:25)
[2019-05-16] MEDS: Metoprolol Tartrate 25 MG Tablet PO (22:25)
[2019-05-16] MEDS: Allopurinol 300 MG Tablet PO (22:25)
[2019-05-16 22:36] LABS: Bedside Glucose 99 mg/dL (70-110)
[2019-05-17] VITALS (14 sets, daily range): BP systolic 134–154; BP diastolic 61–77; PULSE 50–88; RESP 14–18; TEMP 36.4–36.7; O2SAT 95–100
[2019-05-17 00:49] LABS: Bacteria 0 SEEN /hpf (None Seen); Mucous, Urine 0 SEEN /hpf (<or=2+); Red Blood Cells-Urine 0 SEEN /hpf (0-5); Squamous Epithelial Cells - UA 0 SEEN /hpf (0-5)
[2019-05-17 00:51] LABS: Color, Urine Yellow (Yellow); Glucose, Dipstick Normal (Normal); Ketone-Dipstick Negative (Negative); Leukocyte Esterase-Dipstick 25 /ul (Negative); Nitrite-Dipstick Negative (Negative); Occult Blood-Urine Negative /ul (Negative); Protein-Dipstick 15 mg/dl (Negative); Specific Gravity, Urine 1.015 (1.002-1.030); Urine Bilirubin Dipstick Negative (Negative); Urine Clarity Clear (Clear); Urine Urobilinogen Normal (Normal)
[2019-05-17 01:00] LABS: White Blood Cells 0-5 SEEN /hpf (0-5)
--- NOTE | 2019-05-17 05:55 | EKG12_ITS ---
Test Reason : AM EKG Blood Pressure : / mmHG Vent. Rate : 063 BPM Atrial Rate : 063 BPM P-R Int : 192 ms QRS Dur : 136 ms QT Int : 442 ms P-R-T Axes : 059 -48 020 degrees QTc Int : 452 ms Sinus rhythm with occasional Premature ventricular complexes Right bundle branch block Left anterior fascicular block Bifascicular block Abnormal ECG When compared with ECG of 16-MAY-2019 14:19, MANUAL COMPARISON REQUIRED, DATA IS UNCONFIRMED Confirmed by MOMO HARRISON ([id number]), editor sound VLADISLAV HART ([id number]) on 05/19/2019 2:03:10 PM Referred By: Rupali Wu Confirmed By:MOMO HARRISON
[2019-05-17] MEDS: Metoprolol Tartrate 25 MG Tablet PO (06:45)
[2019-05-17] MEDS: Aspirin E.C. 81 MG Tablet PO (06:45)
[2019-05-17] MEDS: Lisinopril 20 MG Tablet PO (06:46)
[2019-05-17] MEDS: Clopidogrel Bisulfate 75 MG Tablet PO (06:46)
[2019-05-17 07:00] LABS: Bedside Glucose 125 mg/dL (70-110)
[2019-05-17 07:16] LABS: Absolute Lymphocyte Count 0.67 X10^3/ul (0.83-4.51); Absolute Neutrophil Count 6.4 X10^3/uL (2.0-7.7); Basophil# 0.04 X10^3/uL; Basophil% 0.5 % (0-1); Eosinophil# 0.26 X10^3/uL; Eosinophils% 3.2 % (0-5); Hematocrit 34.9 % (40-54); Hemoglobin 11.3 g/dl (13.0-16.5); Lymphocyte # 0.67 X10^3/ul (4.0); Lymphocyte % 8.2 % (19-41); Mean Corp Hgb Conc 32.4 g/gl (32-36); Mean Corpuscular Volume 95.6 fL (80-94); Mean Platelet Vol. 11.9 fl (6.2-12.0); Monocyte# 0.77 X10^3/uL; Monocyte% 9.4 % (0-10); Neutrophil # 6.41 X10^3/uL (2.7-7.7); Neutrophil % 78.6 % (47-70); Platelet Count 250 K/mm3 (150-450); RBC Distribution Width CV 15.6 % (11.6-14.6); RBC Distribution Width SD 54.7 fl (35.1-43.9); Red Blood Count 3.65 M/mm3 (4.6-6.2); White Blood Count 8.2 K/mm3 (4.4-11.0)
[2019-05-17 07:20] LABS: POSITIVE COUNT NO; POSITIVE DIFFERENTIAL NO; POSITIVE MORPHOLOGY NO
[2019-05-17 07:21] LABS: International Normalized Ratio 1.1; Prothrombin Time (Protime)PT. 14.2 SECONDS (11.7-14.9)
[2019-05-17 07:22] LABS: Partial Thromboplast Time 29.4 Seconds (24.1-36.2)
[2019-05-17 07:32] LABS: Anion Gap 5 (5-15); BUN 30 mg/dL (7-18); BUN/Creat Ratio 24.2 RATIO (10-20); Chloride 111 mmol/L (98-107); Creatinine, Serum 1.24 mg/dL (0.70-1.30); EST Glomerular Filtration Rate 59 mL/min (>60); Est Glom Filt Rate - Afr Amer 72 mL/min (>60); Estimated Creatinine Clearance 48.92 ml/min; Glucose 126 mg/dL (74-106); Potassium 4.4 mmol/L (3.5-5.1); Sodium Level 140 mmol/L (136-145)
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
--- NOTE | 2019-05-17 13:04 | CL.D_ITS ---
Patient Name: ONESIMO MICHAELS Study Date: 05/17/2019 Performing: Moustapha Yates MD Ht: 71 inches 180 cm : 1935 Wt: 242.8 lbs 110 kg Age: 84 Gender: male BSA: 2.29 Amended PROCEDURE(S) PERFORMED [id number]-HQO/COR/LV CLINICAL PROFILE AND INDICATIONS Indications: Worsening Angina, Suspected CAD Heart Failure: None Stress/Imaging Stress/Image Study Performed: No Angina Classification Anginal Classification w/in 2 Weeks: CCS III CAD Presentations: Unstable angina. CONCLUSIONS Normal Left Ventricular End Diastolic Pressure Normal LV size, wall motion,and systolic function LVEF: by LV gram 60 % [place] Multivessel CAD RECOMMENDATIONS Risk factor modification Medical therapy Case discussed / reviewed with Dr. Ramires. DESCRIPTION OF PROCEDURE The patient arrived to the procedure lab. The risks and benefits of the procedure as well as a full d escription of our services here and current unavailability of surgical backup were fully explained to the patient and/or their significant other prior to the catheterization. The Timeout was completed, verifying the correct patient and procedure. The patient's procedural site was prepped and draped in the usual fashion. Local anesthetic was given subcutaneously to right groin region with Lidocaine 2%. Using a modified Seldinger technique, arterial access was obtained via the right femoral artery, a 4 Fr sheath was inserted Left Coronary Artery selective angiography was performed in multiple views us ing a 4 Fr. JL5 catheter. Right Coronary Artery selective angiography was then performed in multiple views using a 4 Fr. 3DRC catheter. Left Ventriculography was performed in [place] projection using a 4 Fr . Pigtail catheter. LV to AO pullback pressures were then recorded.The arterial sheath was pulled and manual compression applied until hemostasis is achieved. CORONARY ANGIOGRAPHY DOMINANCE: Right Dominant LEFT HEART ASSESSMENT Left Ventricular Ejection Fraction: by LV Gram 60 % Normal LV wall motion Normal Left Ventricular End Diastolic Pressure LVEDP: 8 mmHg LEFT MAIN: Angiographically normal LEFT ANTERIOR DESCENDING ARTERY: Mild luminal irregularities PROX LAD: Eccentric: 25 % Stenosis CIRCUMFLEX ARTERY: OM 1: Proximal - Serial 50 % Stenosis RIGHT CORONARY ARTERY: Mild luminal irregularities PROX RCA: Ectatic: 25 % Stenosis MID RCA: Previously placed stent is patent DISTAL RCA: Ectatic: 25 - 50 % Stenosis VALVE FINDINGS: LV pullback procedure: no obvious hemodynamic findings c/w hemodynamically significant AV stenosis Normal Mitral Valve function AORTIC ROOT: Angiographically normal COMPLICATIONS No Complications PROCEDURE MEDICATIONS Versed 1 mg IV Oxygen: 2 L/min via nasal cannula IV Bolus: .9 NaCl ml total 05/17/2019 11:48:24 SUMMARY OF HEMODYNAMIC DATA Time AIR REST ECG 11:13:18 AO 74/47 (59) SA 11:47:17 LV 100/1, 12 11:58:45 LV 103/0, 8 11:58:51 LV 98/0, 8 11:59:53 LVp 104/0, 8 12:00:06 AOp 100/45 (63) 12:00:11 AO 114/45 (68) 12:16:00 Signed By Moustapha Yates MD On 05/17/2019 13:03:21 Moustapha Yates MD
[2019-05-17 13:55] LABS: Bedside Glucose 112 mg/dL (70-110)
[2019-05-17] MEDS: Furosemide 20 MG Tablet PO (14:10)
[2019-05-17] MEDS: Donepezil HCl 10 MG Tablet PO (14:11)
[2019-05-17] MEDS: Nystatin Powder 15gm Bottle 1 APPLIC TOPICAL (14:11)
--- NOTE | 2019-05-17 15:24 | PN.CARD_ITS ---
Subjectve: The patient is awake. He has had no acute complaints. He is undergone diagnostic cardiac catheterization. He has been recommended for continued [facility] management. Objective: Vital Signs Temp Pulse Resp BP Pulse Ox 98 F 70 15 136/65 H 99 05/17/19 14:30 05/17/19 14:30 05/17/19 14:30 05/17/19 14:30 05/17/19 14:30 Oxygen Flow Rate (L/min) 2 Oxygen Delivery Method Room Air Weight: 242 lb 8.136 oz Body Mass Index (BMI) 33.8 Finger Stick Blood Glucose 154 Intake and Output for Last 24 Hours 05/15/19 05/16/19 05/17/19 23:59 23:59 23:59 Intake Total 1139 / 1139 245 / 245 Output Total 850 / 850 400 / 400 Balance 289 / 289 -155 / -155 General: Awake, Cooperative, No Acute Distress HEENT: Atraumatic, Normocephalic, PERRL, EOMI, Sclera Non Icteric Oral: Moist Mucosa Neck: Supple, Good ROM, No JVD Lungs: Clear to auscultation Cardiovascular: Regular Rhythm, Normal S1, Normal S2 Vascular: Normal Femoral Pulses Abdomen: Bowel Sounds Present, Soft, Non Tender Neurological: No Focal Motor or Sensory Deficit Psych/Mental Status: Dementia 05/16/19 19:55: Troponin I < 0.015 05/17/19 00:40: Urine Color Yellow, Urine Clarity Clear, Urine pH 6.0, Ur Specific [place] 1.015, Urine Protein 15 H, Urine Glucose (UA) Normal, Urine Ketones Negative, Urine Occult Blood Negative, Urine Nitrite Negative, Urine Bilirubin Negative, Urine Urobilinogen Normal, Ur Leukocyte Esterase 25 H, Urine RBC 0 SEEN, Urine WBC 0-5 SEEN 05/17/19 06:13: WBC 8.2, RBC 3.65 L, Hgb 11.3 L, Hct 34.9 L, MCV 95.6 H, MCH 31.0, MCHC 32.4, RDW 15.6 H, RDW Differential 54.7 H, Plt Count 250, MPV 11.9, Immature Gran % (Auto) 0.100, Neut % (Auto) 78.6 H, Lymph % (Auto) 8.2 L, [place] % (Auto) 9.4, Eos % (Auto) 3.2, Baso % (Auto) 0.5, Absolute Neuts (auto) 6.4, Total Counted Not Reportable 05/17/19 06:13: Sodium 140, Potassium 4.4, Chloride 111 H, Carbon Dioxide 24.0, Anion Gap 5, BUN 30 H, Creatinine 1.24, Est GFR (MDRD) Af Amer 72, Est GFR (MDRD) Non-Af 59 L, BUN/Creatinine Ratio 24.2 H, Glucose 126 H, Calcium 9.0 05/17/19 06:13: PT 14.2, INR 1.1, APTT 29.4 Rhythm: Sinus rhythm Medical Necessity - Tobacco Use Smoking Status: Former smoker Assessment/Plan 1. CAD status post RCA PCI/BMS The patient has undergone previous noninvasive and invasive evaluation as described above. At the present time he is been recommended for continued medical management. 3. Aortic valve stenosis The patient does have an element of aortic valve stenosis. 4. Hyperlipidemia The patient will continue medical management with adjustment as needed. 5. Hypertension The patient will continue medical therapy. His antihypertensive regimen will be adjusted as needed. 6. Diabetes mellitus The patient will continue under the care of internal medicine. 7. Carotid artery disease The patient does have a previous carotid artery duplex study demonstrating bilateral carotid artery stenosis which was reported as mild at the time. This can be reassessed for any significant change with noninvasive studies as deemed appropriate. Comment: The patient's case has been discussed and reviewed with the patient, his spouse, Dr. Ramires, and Dr. Wu. This note was generated using a voice recognition system and there may be incorrect words, spelling or punctuation that were not noted when reviewing the office note prior to saving.
--- NOTE | 2019-05-17 15:52 | DCINST_ITS ---
- Discharge Diagnoses Current Active Problems: Current Active and Chronic Problems (Last Reviewed 10/11/18 @ 09:23 by Pretty Rachel) Substernal chest pain (Acute) History of coronary artery disease (Chronic) History of type 2 diabetes mellitus (Chronic) History of hypertension (Chronic) History of hypercholesterolemia (Chronic) Renal insufficiency (Acute) Aortic valve stenosis (Chronic) Anemia, unspecified (Chronic) You will use the following diet at home:: Cardiac Your food should be the consistency of: Regular Your liquids should be the consistency of: Regular/Thin Discharge Activity: Return to Normal Activity Weight Bearing Status: Weight bearing as tolerated Call your doctor if you observe: Fever of 101 or Higher, Shortness of breath, Chest pain Instructions: Recognizing a Heart Attack or Angina, Warning Signs of a Heart Attack, Angina Additional Instructions: DO not take metformin for hte next 2 days o/a of cardiac cath. Resume Metformin on Thursday05/20/19 Allergies/Adverse Reactions: Allergies metronidazole [From Flagyl] Adverse Reaction (Verified 05/16/19 11:20) Nausea Medications to take at Discharge Insulin Detemir [Levemir FlexPen] 5 units SC BREAKFAST 11/22/15 Linagliptin [Tradjenta] 5 mg PO QHS 11/22/15 Nitroglycerin (INPATIENT USE) [Nitrostat] 0.4 mg SUBLINGUAL Q5M PRN 11/22/15 Allopurinol [Zyloprim] 300 mg PO QHS 12/16/16 atorvastatin 80 mg tablet 80 mg PO QHS #90 tab 12/02/17 aspirin 81 mg tablet,delayed release 81 mg PO DAILY 12/03/17 furosemide 20 mg tablet 20 mg PO QDAY 12/03/17 metoprolol tartrate 25 mg tablet 25 mg PO BID #180 tab 12/21/17 colchicine 0.6 mg tablet 0.6 mg PO DAILY PRN 10/11/18 lisinopril 20 mg tablet 20 mg PO DAILY tab 10/11/18 metformin 1,000 mg tablet 500 mg PO BID tab 10/11/18 Aspirin/Acetaminophen/Caffeine [Excedrin Extra Strength Caplet] 1 ea PO DAILY PRN PRN 05/16/19 Donepezil HCl [Aricept] 10 mg PO DAILY 05/16/19 Isosorbide Mononitrate [Imdur] 30 mg PO DAILY #30 tab 05/17/19 Nystatin Powder [Mycostatin Powder] 1 applic TOPICAL BID #1 bottle 05/17/19 The following prescriptions were given: Isosorbide Mononitrate [Imdur] 30 mg PO DAILY #30 tab Transmission Status: Pending to [facility] Nystatin Powder [Mycostatin Powder] 1 applic TOPICAL BID #1 bottle Transmission Status: Pending to [facility] Primary Care Physician: Apurva Elkins NP-C [Primary Care Provider] - Please follow up with your Primary Care Physician in: one week Test Results: Test results from this visit will be discussed in further detail at your follow- up appointment, if applicable. Please Follow Up With: Moustapha Yates MD When: one week Proposed Discharge Date: 05/17/19
--- NOTE | 2019-05-17 15:54 | DS.PCM_ITS ---
Discharge Date and Diagnosis - Problem List Patient Problems: Active and Suspected Problems (Last Reviewed 10/11/18 @ 09:23 by Pretty Rachel) Substernal chest pain (Acute) Renal insufficiency (Acute) Date of Admission: 05/16/19 Date of Discharge: 05/17/19 - Primary Discharge Diagnosis Active and Suspected Problems (Last Reviewed 10/11/18 @ 09:23 by Pretty Rachel) Substernal chest pain (Acute) Renal insufficiency (Acute) - Secondary Discharge Diagnosis Chronic Problems (Last Reviewed 10/11/18 @ 09:23 by Pretty Rachel) History of coronary artery disease (Chronic) History of type 2 diabetes mellitus (Chronic) History of hypertension (Chronic) History of hypercholesterolemia (Chronic) Aortic valve stenosis (Chronic) Essential hypertension (Chronic) Atherosclerotic heart disease of [place] coronary artery without angina pectoris (Chronic) PVD (peripheral vascular disease) (Chronic) Nonrheumatic aortic (valve) stenosis (Chronic) Anemia, unspecified (Chronic) Abnormal nuclear stress test (Chronic) 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 Mild increased markings at the lung bases suggestive of atelectasis. Electronically Signed: Filipe Anguiano, at 12:28 EDT , Service support , cardiology- Dr Yates Operations: None Procedures: 2-D Echocardiogram, Cardiac catheterization Summary of Care Provided: The patient is a 84 year old M with a past medical history as listed which includes CAD status post bare-metal stent placement to the RCA in 2014. He was admitted through the ED on 05/16/2019 with a complaint of chest pain. He states chest pain that started about 4 days prior to admission was retrosternal and pressure-like. He had associated shortness of breath and said chest pain worsened with mild exertion. He denied any palpitations or dizziness or lower extremity swelling. Review of systems otherwise negative. On admission in the ED, vitals were stable and chest x-ray showed only hyperinflation. EKG showed no acute ST changes and showed an incomplete right bundle branch block which was present from last year. Initial troponin was negative. He was admitted to be managed for chest pain to rule out ACS. Troponins x3 were negative. He had a cardiac cath which showed clean coronaries and normal angiography. He remained stable and was discharged home on 05/17/2019. Imdur 30 mg daily was added onto his medication. He is follow-up with his primary care doctor and cardiology within 1 week. Patient seen and examined prior to discharge. He had no complaints and felt well. Review of systems is otherwise negative. Labs and vitals reviewed. Home medications reviewed and reconciled. On examination Vital Signs Height 5 ft 11 in Weight: 242 lb 8.136 oz Weight in Pounds 242.5 lbs Pulse Ox 97 Temperature 98.1 F Pulse Rate 76 Respiratory Rate 16 Blood Pressure 148/77 Blood Pressure Position Semi-Fowlers General: Alert, Cooperative, No apparent distress, HEENT: Atraumatic, PERRLA, EOMI, Normocephalic Neck: Supple, No JVD, Negative Carotid Bruits Lungs: Clear to auscultation, Normal air movement Cardiovascular: Regular rate, Regular Rhythm, Normal S1, Normal S2, No murmurs Abdomen: Bowel Sounds Present, Soft, Non Tender, Non-Distended, No Hepato- splenomegaly Extremities: No clubbing, No cyanosis, No edema, Capillary Refill Less than 3 Seconds Skin: No rashes, No breakdown Musculoskeletal: No Tenderness to Palpation of Joints or Extremities Lymphatic: No Cervical, Supraclavicular, or Inguinal Adenopathy Neurological: Cranial nerves II-XII grossly intact, Neuro grossly intact, Motor Exam 5/5 strength throughout Psych/Mental Status: Normal Affect, Appropriate Plan as above. Of note, patient will need to take his metformin for the next 2 days on account of the dye received during cardiac cath. This is in order to protect his kidneys. He is to resume metformin on 05/20/2019. Patient Problems: Active and Suspected Problems (Last Reviewed 10/11/18 @ 09:23 by Pretty Rachel) Substernal chest pain (Acute) Renal insufficiency (Acute) - Physical Exam Vital Signs Temp Pulse Resp BP Pulse Ox 98 F 70 15 136/65 H 99 05/17/19 14:30 05/17/19 14:30 05/17/19 14:30 05/17/19 14:30 05/17/19 14:30 Oxygen Flow Rate (L/min) 2 Oxygen Delivery Method Room Air Weight: 242 lb 8.136 oz Body Mass Index (BMI) 33.8 Finger Stick Blood Glucose 154 Intake and Output for Last 24 Hours 05/15/19 05/16/19 05/17/19 23:59 23:59 23:59 Intake Total 1139 / 1139 245 / 245 Output Total 850 / 850 400 / 400 Balance 289 / 289 -155 / -155 Laboratory Tests Past 24 Hrs 05/16/19 05/17/19 05/17/19 19:55 00:40 06:13 WBC 8.2 RBC 3.65 L Hgb 11.3 L Hct 34.9 L MCV 95.6 H MCH 31.0 MCHC 32.4 RDW 15.6 H RDW Differential 54.7 H Plt Count 250 MPV 11.9 Immature Gran % (Auto) 0.100 Neut % (Auto) 78.6 H Lymph % (Auto) 8.2 L [place] % (Auto) 9.4 Eos % (Auto) 3.2 Baso % (Auto) 0.5 Absolute Neuts (auto) 6.4 Absolute Lymphs (auto) 0.67 L Total Counted Not Reportable PT INR APTT Sodium Potassium Chloride Carbon Dioxide Anion Gap BUN Creatinine Estim Creat Clear Calc Est GFR (MDRD) Af Amer Est GFR (MDRD) Non-Af BUN/Creatinine Ratio Glucose Calcium Troponin I < 0.015 Urine Color Yellow Urine Clarity Clear Urine pH 6.0 Ur Specific [place] 1.015 Urine Protein 15 H Urine Glucose (UA) Normal Urine Ketones Negative Urine Occult Blood Negative Urine Nitrite Negative Urine Bilirubin Negative Urine Urobilinogen Normal Ur Leukocyte Esterase 25 H Urine RBC 0 SEEN Urine WBC 0-5 SEEN Ur Squamous Epith Cells 0 SEEN Urine Bacteria 0 SEEN Urine Mucus 0 SEEN 05/17/19 05/17/19 06:13 06:13 WBC RBC Hgb Hct MCV MCH MCHC RDW RDW Differential Plt Count MPV Immature Gran % (Auto) Neut % (Auto) Lymph % (Auto) [place] % (Auto) Eos % (Auto) Baso % (Auto) Absolute Neuts (auto) Absolute Lymphs (auto) Total Counted PT 14.2 INR 1.1 APTT 29.4 Sodium 140 Potassium 4.4 Chloride 111 H Carbon Dioxide 24.0 Anion Gap 5 BUN 30 H Creatinine 1.24 Estim Creat Clear Calc 48.92 Est GFR (MDRD) Af Amer 72 Est GFR (MDRD) Non-Af 59 L BUN/Creatinine Ratio 24.2 H Glucose 126 H Calcium 9.0 Troponin I Urine Color Urine Clarity Urine pH Ur Specific [place] Urine Protein Urine Glucose (UA) Urine Ketones Urine Occult Blood Urine Nitrite Urine Bilirubin Urine Urobilinogen Ur Leukocyte Esterase Urine RBC Urine WBC Ur Squamous Epith Cells Urine Bacteria Urine Mucus POC Glucose 05/17/19 05/17/19 05/16/19 13:49 06:44 22:24 POC Glucose 112 H 125 H 99 05/16/19 15:58 POC Glucose 88 Discharge Diet: Low fat/ Low Cholesterol Discharge Activity: Return to Normal Activity Weight Bearing Status: Weight bearing as tolerated Call your doctor if you observe: Fever of 101 or Higher, Shortness of breath, Chest pain Home Medications: Medications to take at Discharge Insulin Detemir [Levemir FlexPen] 5 units SC BREAKFAST 11/22/15 Linagliptin [Tradjenta] 5 mg PO QHS 11/22/15 Nitroglycerin (INPATIENT USE) [Nitrostat] 0.4 mg SUBLINGUAL Q5M PRN 11/22/15 Allopurinol [Zyloprim] 300 mg PO QHS 12/16/16 atorvastatin 80 mg tablet 80 mg PO QHS #90 tab 12/02/17 aspirin 81 mg tablet,delayed release 81 mg PO DAILY 12/03/17 furosemide 20 mg tablet 20 mg PO QDAY 12/03/17 metoprolol tartrate 25 mg tablet 25 mg PO BID #180 tab 12/21/17 colchicine 0.6 mg tablet 0.6 mg PO DAILY PRN 10/11/18 lisinopril 20 mg tablet 20 mg PO DAILY tab 10/11/18 metformin 1,000 mg tablet 500 mg PO BID tab 10/11/18 Aspirin/Acetaminophen/Caffeine [Excedrin Extra Strength Caplet] 1 ea PO DAILY PRN PRN 05/16/19 Donepezil HCl [Aricept] 10 mg PO DAILY 05/16/19 Isosorbide Mononitrate [Imdur] 30 mg PO DAILY #30 tab 05/17/19 Nystatin Powder [Mycostatin Powder] 1 applic TOPICAL BID #1 bottle 05/17/19 Following Prescrptions Were Given to Patient: Isosorbide Mononitrate [Imdur] 30 mg PO DAILY #30 tab Transmission Status: Received by ENID PRIDE RD Nystatin Powder [Mycostatin Powder] 1 applic TOPICAL BID #1 bottle Transmission Status: Received by ENID PRIDE RD Primary Care Physician: Apurva Elkins NP-C [Primary Care Provider] - Please follow up with your Primary Care Physician in: one week Please Follow Up With: Moustapha Yates MD When: one week Patient Instructions: Recognizing a Heart Attack or Angina, Angina, Warning Signs of a Heart Attack Disposition: Home Minutes spent on discharge:: 40 Patient Condition:: Stable Medical Necessity - Tobacco Use Smoking Status: Former smoker Meaningful Use Info Meaningful Use Diagnoses (Choose all that apply): None applicable Code Visit Inpatient E&M: 72386 Disch Hosp
--- NOTE | 2019-05-18 15:03 | NURSING ---
Called to check up on patient. Patient was agitated last night at dc and was forceful with staff at times patient was calmer once arrived to driveway and was cooperative with . thanked nurse for care.
== END 2019-05-17 15:54 | disposition home or self-care (01) ==
LOC: ED 12:42 → PCU 13:35
PROVIDERS: Internal Medicine Cardiovascular Disease; Admitting Provider Student in an Organized Health Care Education/Training Program; Emergency Provider Emergency Medicine; Family Provider Nurse Practitioner; PCP Nurse Practitioner; Referring Provider Student in an Organized Health Care Education/Training Program; Visit Provider Student in an Organized Health Care Education/Training Program
DX: R07.89 Other chest pain (principal); I25.10 Atherosclerotic heart disease of native coronary artery without angina pectoris; E11.51 Type 2 diabetes mellitus with diabetic peripheral angiopathy without gangrene; G47.33 Obstructive sleep apnea (adult) (pediatric); E11.22 Type 2 diabetes mellitus with diabetic chronic kidney disease; I12.9 Hypertensive chronic kidney disease with stage 1 through stage 4 chronic kidney disease, or unspecified chronic kidney disease; Z95.5 Presence of coronary angioplasty implant and graft; Z79.899 Other long term (current) drug therapy; Z79.82 Long term (current) use of aspirin; Z79.4 Long term (current) use of insulin; Z87.891 Personal history of nicotine dependence; E78.5 Hyperlipidemia, unspecified; N18.3 Chronic kidney disease, stage 3 (moderate)
CPT/HCPCS: 36415; 71046; 80048; 81001; 82962; 84484; 85025; 85610; 85730; 93005; 93306; 93458; 96360; 96361; 97162; 97166; 99152; 99153; 99218; 99285; J7030; Q9957; A4216; C1769; C1894; C8929; G0378; Q9967

== ENCOUNTER → 2019-10-27 12:05 | Outpatient (CLI) | payer MEDICARE, OTHER, SELFPAY ==
[2019-05-25 11:41] VITALS: BMI 34.2
== END ==
PROVIDERS: Family Provider Nurse Practitioner; PCP Nurse Practitioner; Referring Provider Internal Medicine Cardiovascular Disease; Visit Provider Internal Medicine Cardiovascular Disease
DX: I25.10 Atherosclerotic heart disease of native coronary artery without angina pectoris (principal); I35.0 Nonrheumatic aortic (valve) stenosis

== ENCOUNTER → 2019-12-12 10:02 | Outpatient (CLI) | payer MEDICARE, OTHER, SELFPAY ==
[2019-11-28 16:02] VITALS: BMI 37.3
[2019-12-12 11:46] LABS: Anion Gap 6 (5-15); BUN 27 mg/dL (7-18); BUN/Creat Ratio 20.6 RATIO (10-20); Calcium,Total 9.6 mg/dL (8.5-10.1); Chloride 106 mmol/L (98-107); Creatinine, Serum 1.31 mg/dL (0.70-1.30); EST Glomerular Filtration Rate 56 mL/min (>60); Est Glom Filt Rate - Afr Amer 67 mL/min (>60); Glucose 145 mg/dL (74-106); Potassium 3.9 mmol/L (3.5-5.1); Sodium Level 141 mmol/L (136-145)
== END ==
PROVIDERS: PCP Nurse Practitioner; Referring Provider Internal Medicine Cardiovascular Disease; Visit Provider Internal Medicine Cardiovascular Disease
DX: I35.0 Nonrheumatic aortic (valve) stenosis (principal); R60.9 Edema, unspecified
CPT/HCPCS: 36415; 80048

== ENCOUNTER → 2020-01-09 10:36 | Outpatient (CLI) | payer MEDICARE, OTHER, SELFPAY ==
[2019-11-28 16:02] VITALS: BMI 37.3
[2020-01-09 12:00] LABS: Anion Gap 5 (5-15); BUN 29 mg/dL (7-18); BUN/Creat Ratio 17.9 RATIO (10-20); Calcium,Total 9.4 mg/dL (8.5-10.1); Chloride 108 mmol/L (98-107); Creatinine, Serum 1.62 mg/dL (0.70-1.30); EST Glomerular Filtration Rate 44 mL/min (>60); Est Glom Filt Rate - Afr Amer 53 mL/min (>60); Glucose 183 mg/dL (74-106); Potassium 4.3 mmol/L (3.5-5.1); Sodium Level 142 mmol/L (136-145)
== END ==
PROVIDERS: PCP Nurse Practitioner; Referring Provider Internal Medicine Cardiovascular Disease; Visit Provider Internal Medicine Cardiovascular Disease
DX: I25.10 Atherosclerotic heart disease of native coronary artery without angina pectoris (principal); Z79.899 Other long term (current) drug therapy
CPT/HCPCS: 36415; 80048

== ENCOUNTER 2020-05-23 12:49 | Outpatient (RCR) | payer MEDICARE, OTHER, SELFPAY ==
[2019-11-28 16:02] VITALS: BMI 37.3
[2020-05-14 17:08] LABS: Anion Gap 8 (5-15); BUN 42 mg/dL (7-18); Calcium,Total 8.9 mg/dL (8.5-10.1); Chloride 102 mmol/L (98-107); Creatinine, Serum 1.75 mg/dL (0.70-1.30); EST Glomerular Filtration Rate 40 mL/min (>60); Est Glom Filt Rate - Afr Amer 48 mL/min (>60); Glucose 130 mg/dL (74-106); Sodium Level 139 mmol/L (136-145)
[2020-05-23 14:02] LABS: Anion Gap 11 (5-15); BUN 40 mg/dL (7-18); BUN/Creat Ratio 23.3 RATIO (10-20); Chloride 100 mmol/L (98-107); Creatinine, Serum 1.72 mg/dL (0.70-1.30); EST Glomerular Filtration Rate 41 mL/min (>60); Est Glom Filt Rate - Afr Amer 49 mL/min (>60); Glucose 132 mg/dL (74-106); Potassium 3.7 mmol/L (3.5-5.1); Sodium Level 139 mmol/L (136-145)
== END 2020-05-23 18:00 | disposition home or self-care (01) ==
LOC: HHLAB 12:49
PROVIDERS: PCP Nurse Practitioner; Referring Provider Internal Medicine Cardiovascular Disease; Visit Provider Internal Medicine Cardiovascular Disease
DX: E11.51 Type 2 diabetes mellitus with diabetic peripheral angiopathy without gangrene (principal); I12.9 Hypertensive chronic kidney disease with stage 1 through stage 4 chronic kidney disease, or unspecified chronic kidney disease; E11.22 Type 2 diabetes mellitus with diabetic chronic kidney disease; N18.9 Chronic kidney disease, unspecified
CPT/HCPCS: 80048

== ENCOUNTER → 2020-06-01 12:04 | Outpatient (CLI) | payer MEDICARE, OTHER, SELFPAY ==
[2019-11-28 16:02] VITALS: BMI 37.3
--- NOTE | 2020-06-01 12:14 | CT_ITS ---
STUDY: CT BRAIN WITHOUT CONTRAST REASON FOR EXAM: Male, 85 years old. FALL FEW WEEKS AGO. NOW HAS CONFUSION WITH COMBATIVENESS RADIATION DOSAGE (If Supplied By Facility): CTDIvol = ( 44.99 ) mGy, DLP = ( 863.60 ) mGycm TECHNIQUE: Transaxial CT imaging of the brain was performed without administration of intravenous contrast material. Individualized dose optimization techniques were used for this CT. COMPARISON: 2016 FINDINGS: Normal soft tissue structures. Normal calvarium. There is a subacute resolving, hypodense subdural hematoma along the left parietal and occipital convexities. This likely occurred from the patient''s history of recent fall. The maximum thickness is approximately 9 mm, there is approximately 3 mm of [id number] midline shift due to the presence of the hematoma. Continued follow-up recommended to assure resolution. There is mild cerebral atrophy with widening of the extra-axial spaces and ventricular dilatation. There are areas of decreased attenuation within the white matter tracts of the supratentorial brain, consistent with microvascular disease changes. Normal basal ganglia and thalami. Normal brainstem. There is mild cerebellar atrophy. There is no acute intracranial hemorrhage. There are no findings of an acute ischemic infarction. Normal visualized paranasal sinuses. CT/Brain/Head without Contrast IMPRESSION: Resolving subacute subdural hematoma along the left parietal and occipital lobe convexities likely from recent fall. No skull fracture is present. There is slight [id number] midline shift of approximately 3 mm. Follow-up recommended to assure resolution. Age consistent atrophic periventricular deep white matter changes, no acute hemorrhage Electronically Signed: Perry Gregory MD at 12:38 EDT , Service support ,
[2020-06-01 15:30] LABS: Absolute Lymphocyte Count 0.53 X10^3/uL (0.83-4.51); Absolute Neutrophil Count 5.8 X10^3/uL (2.0-7.7); Basophil# 0.05 X10^3/uL; Basophil% 0.7 % (0-1); Eosinophil# 0.18 X10^3/uL; Eosinophils% 2.5 % (0-5); Hematocrit 36.8 % (40-54); Hemoglobin 11.9 g/dL (13.0-16.5); Lymphocyte # 0.53 X10^3/ul (4.0); Lymphocyte % 7.3 % (19-41); Mean Corp Hgb Conc 32.3 g/dL (32-36); Mean Corpuscular Hgb 31.2 pg (27.0-32.0); Mean Corpuscular Volume 96.6 fL (80-94); Mean Platelet Vol. 11.7 fl (6.2-12.0); Monocyte# 0.66 X10^3/uL; NRBC Flagged by Analyzer 0 % (0-5); Neutrophil # 5.82 X10^3/uL (2.7-7.7); Neutrophil % 79.7 % (47-70); POSITIVE DIFFERENTIAL YES; Platelet Count 371 K/mm3 (150-450); RBC Distribution Width CV 16.1 % (11.6-14.6); Red Blood Count 3.81 M/mm3 (4.6-6.2); White Blood Count 7.3 K/mm3 (4.4-11.0)
[2020-06-01 15:32] LABS: Differential Indicated SCAN CRITERIA MET
[2020-06-01 16:02] LABS: Differential Comment SCANNED
[2020-06-01 16:08] LABS: Albumin, Serum 3.7 g/dL (3.2-5.0); BUN 49 mg/dL (7-18); BUN/Creat Ratio 22.8 RATIO (10-20); Calcium,Total 9.2 mg/dL (8.5-10.1); Chloride 106 mmol/L (98-107); Creatinine, Serum 2.15 mg/dL (0.70-1.30); EST Glomerular Filtration Rate 31 mL/min (>60); Est Glom Filt Rate - Afr Amer 38 mL/min (>60); Glucose 133 mg/dL (74-106); Phosphorus 3.7 mg/dL (2.5-4.9); Potassium 4.3 mmol/L (3.5-5.1); Sodium Level 141 mmol/L (136-145)
== END ==
PROVIDERS: PCP Nurse Practitioner; Referring Provider Nurse Practitioner; Visit Provider Nurse Practitioner
DX: S06.5X9A Traumatic subdural hemorrhage with loss of consciousness of unspecified duration, initial encounter (principal); R11.0 Nausea
CPT/HCPCS: 70450; 80069; 83880; 85025

== ENCOUNTER 2020-06-04 16:07 | Emergency (ER) | payer MEDICARE, OTHER, SELFPAY ==
[2019-11-28 16:02] VITALS: BMI 37.3
[2020-06-04 16:08] VITALS: BP 134/80; PULSE 74; RESP 16; TEMP 36.7; O2SAT 97; BMI 38.1
--- NOTE | 2020-06-04 18:57 | EKG12_ITS ---
Test Reason : SYNCOPE Blood Pressure : / mmHG Vent. Rate : 071 BPM Atrial Rate : 071 BPM P-R Int : 202 ms QRS Dur : 138 ms QT Int : 414 ms P-R-T Axes : 048 -44 050 degrees QTc Int : 449 ms Normal sinus rhythm Left axis deviation Right bundle branch block Minimal voltage criteria for LVH, may be normal variant Abnormal ECG Confirmed by JAIDA VALDOVINOS, MIGNON ([id number]), associate editor PRACHI KO ([id number] on 06/06/2020 12:37:48 PM Referred By: YORDAN Confirmed By:MIGNON SENA MD
--- NOTE | 2020-06-04 18:57 | CT_ITS ---
We are attempting to reach an attending provider to discuss findings. An addendum with communication details will be sent when the communication is complete. STUDY: CT BRAIN WITHOUT CONTRAST REASON FOR EXAM: Male, 85 years old. SUBDURAL BLEED ONE MONTH AGO/FALL TODAY RADIATION DOSAGE (If Supplied By Facility): CTDIvol = ( 44.99 ) mGy, DLP = ( 863.60 ) mGycm TECHNIQUE: Transaxial CT imaging of the brain was performed without administration of intravenous contrast material. Individualized dose optimization techniques were used for this CT. COMPARISON: 06-01-20 FINDINGS: Normal soft tissue structures. Normal calvarium. Calcification of cavernous carotids Mild atrophy and periventricular white matter ischemic changes.. Normal basal ganglia and thalami. Normal brainstem. Normal cerebellum. There is a persistent small subacute/acute left subdural hematoma which is not changed appreciably in size since prior exam however there is very slightly increased attenuation in the hematoma at this time suggesting mild recurrent acute bleed.. There are no findings of an acute ischemic infarction. Normal visualized paranasal sinuses. CT/Brain/Head without Contrast IMPRESSION: Persistent acute/subacute left subdural hematoma is not changed appreciably in size however there appears to be slight increase in the acute component of the hemorrhage since previous study.. Recommend clinical correlation and follow-up studies Electronically Signed: Adrian Alexander MD at 19:42 EDT , Service support ,
--- NOTE | 2020-06-04 18:59 | ED.DCSUM_ITS ---
History of Present Illness Chief Complaint: Fall Informant: Patient, Family Limited by: Dementia Narrative: Family states approximately 3 weeks ago the patient fell and hit his head. 4 days ago he had an outpatient head CT that showed a subdural hematoma along the left parietal and occipital convexities with a maximum thickness of 9 mm and a approximately 3 mm of left to right midline shift. Family states that they were supposed to be seen by primary care again tomorrow. Patient has been complaining of intermittent blurry fuzziness. Today he was sleeping out on the swing on the front porch and when family went to check on him he had fallen and is on the ground. Patient has dementia so history is limited but he does tell me he has pain in the right forearm. It is unsure of why the patient fell today. Though he has neuropathy and has significant chronic lower extremity edema that has not changed from his baseline. Past Medical History - Allergies and Home Meds Allergies/Adverse Reactions: Allergies metronidazole [From Flagyl] Adverse Reaction (Verified 06/04/20 16:12) Nausea Primary Care Physician: Apurva Elkins NP-C [Primary Care Provider] - Surgical History: angioplasty - 10/2015 [facility] Smoking Status: Former smoker - Family History Maternal Family History: Family History (Last Reviewed 11/28/19 @ 16:05 by Pretty Rachel) Brother Hypertension MVP (mitral valve prolapse) Family History: Reports: No pertinent history Paternal Family History: Family History (Last Reviewed 11/28/19 @ 16:05 by Pretty Rachel) Brother Hypertension MVP (mitral valve prolapse) Family History: Reports: No pertinent history Review of Systems ROS: Unable to Obtain Physical Exam Vital Signs/Narrative: Vital Signs Temp Pulse Resp BP Pulse Ox 06/04/20 16:08 98.0 F 74 16 134/80 H 97 Inital Vital Signs reviewed: Yes General: Well nourished, Well developed, No Acute Distress Head: Normocephalic, Atraumatic Eyes: Perrl, EOMI ENT: Moist mucous membranes, No rhinorrhea Neck: Supple, Nontender Cardiovascular: Regular rate, Regular rhythm, No murmurs Respiratory: No distress, CTA bilaterally, Chest nontender Abdomen: Soft, Nontender, Nondistended, Normal bowel sounds Back: Nontender, Normal Inspection Extremities: Tenderness - Tenderness along the right forearm no deformity full range of motion, Edema - 3+ bilateral lower extremity edema Skin: Normal color, No rash Neurological: Alert, Cranial nerves II-XII grossly intact, Normal Strength, Normal Sensation Diagnostic/Tx/Re-eval Clinical Impression(s) from Imaging Studies Brain CT 06/04/20 18:57 IMPRESSION: Persistent acute/subacute left subdural hematoma is not changed appreciably in size however there appears to be slight increase in the acute component of the hemorrhage since previous study.. Recommend clinical correlation and follow-up studies Electronically Signed: Adrian Alexander MD at 19:42 EDT , Service support , ADDENDUM: 06/04/202005 IMPRESSION: Persistent acute/subacute left subdural hematoma is not changed appreciably in size however there appears to be slight increase in the acute component of the hemorrhage since previous study.. Recommend clinical correlation and follow-up studies N.B. : The above information has been verbally conveyed by Adrian Alexander MD to Dr. Angel Arana MD, on 06/04/2020 19:59:27 (ET). Electronically Signed: Adrian Alexander MD at 19:42 EDT , Service support , Chest X-Ray 06/04/20 19:25 IMPRESSION: No acute cardiopulmonary pathology Electronically Signed: Adrian Alexander MD at 19:57 EDT , Service support , Cervical Spine CT 06/04/20 19:47 IMPRESSION: No evidence for acute fracture or subluxation.. 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 No acute hip or pelvic fracture Electronically Signed: Adrian Alexander MD at 20:15 EDT , Service support , - EKG Initial EKG Interpretation: Sinus Rhythm - EKG demonstrates a normal sinus rhythm at a rate of 71 with right bundle branch block. - Medical Decision Making CT the brain shows more of an acute component than there was on Thursday but the subacute component and shift has not changed. CT the cervical spine was negative. Chest x-ray and pelvis x-ray were negative. I discussed the case with the patient and his family. We are going to transfer at their request to [facility]. He has been in discussed with the ED attending Dr. Cami Odom. - Critical Care Time Critical care time (excluding procedures): 30-74 minutes - 31 min, Discussing w/Patient &/or Family/Operators Teacher, Discussing w/Consultants, Arranging Admission or Transfer, Performing Direct Patient Care at Bedside ED Disposition - Plan for ED Patient: Disposition: [facility] Diagnosis: Subdural hematoma, acute Referrals: Apurva Elkins, STEREO OPERATOR-C [Primary Care Provider] -
[2020-06-04 19:10] VITALS: BP 137/71; PULSE 67; RESP 19; O2SAT 100
[2020-06-04 19:25] LABS: Absolute Lymphocyte Count 0.66 X10^3/uL (0.83-4.51); Absolute Neutrophil Count 8.4 X10^3/uL (2.0-7.7); Basophil# 0.05 X10^3/uL; Basophil% 0.5 % (0-1); Eosinophil# 0.27 X10^3/uL; Eosinophils% 2.6 % (0-5); Hematocrit 34.9 % (40-54); Hemoglobin 11.3 g/dL (13.0-16.5); Lymphocyte # 0.66 X10^3/ul (4.0); Lymphocyte % 6.4 % (19-41); Mean Corp Hgb Conc 32.4 g/dL (32-36); Mean Corpuscular Volume 95.9 fL (80-94); Monocyte# 0.86 X10^3/uL; Monocyte% 8.4 % (0-10); NRBC Flagged by Analyzer 0 % (0-5); Neutrophil # 8.37 X10^3/uL (2.7-7.7); Neutrophil % 81.6 % (47-70); Platelet Count 338 K/mm3 (150-450); RBC Distribution Width CV 16.3 % (11.6-14.6); RBC Distribution Width SD 56.3 fl (35.1-43.9); Red Blood Count 3.64 M/mm3 (4.6-6.2); White Blood Count 10.3 K/mm3 (4.4-11.0)
--- NOTE | 2020-06-04 19:25 | RAD_ITS ---
STUDY: X-RAY CHEST REASON FOR EXAM: Male, 85 years old. Syncope. TECHNIQUE: AP portable COMPARISON: 05-16-19. FINDINGS: Less than optimal inspiratory effort is seen however the lungs are clear. There is no demonstrated pleural abnormality. Normal size heart. Normal mediastinum and jose. Normal visualized pulmonary arteries. Normal visualized aortic arch and descending thoracic aorta. Dorsal spine and shoulders demonstrate degenerative change. Normal visualized ribs and, clavicles There is no demonstrated abnormality of the visualized soft tissue structures of the upper abdomen. No significant change since prior exam RAD/Chest 1 View (Portable) IMPRESSION: No acute cardiopulmonary pathology Electronically Signed: Adrian Alexandre MD at 19:57 EDT , Service support ,
[2020-06-04 19:32] LABS: International Normalized Ratio 1.1; Prothrombin Time (Protime)PT. 13.6 SECONDS (11.7-14.9)
[2020-06-04 19:33] LABS: Partial Thromboplast Time 26.2 Seconds (24.1-36.2)
[2020-06-04 19:44] LABS: ALB/GLOB Ratio 0.8 RATIO (0.9-2.4); AST(SGOT) 26 U/L (15-37); Alanine Aminotransfer ALT/SGPT 23 U/L (16-61); Albumin, Serum 3.3 g/dL (3.2-5.0); Alkaline Phosphatase 95 U/L (45-117); Anion Gap 7 (5-15); BUN 39 mg/dL (7-18); BUN/Creat Ratio 21.4 RATIO (10-20); Calcium,Total 9.1 mg/dL (8.5-10.1); Chloride 106 mmol/L (98-107); Creatinine, Serum 1.82 mg/dL (0.70-1.30); EST Glomerular Filtration Rate 38 mL/min (>60); Est Glom Filt Rate - Afr Amer 46 mL/min (>60); Estimated Creatinine Clearance 32.75 ml/min; Glucose 117 mg/dL (74-106); Potassium 3.8 mmol/L (3.5-5.1); Protein, Total 7.3 g/dL (6.4-8.2); Sodium Level 141 mmol/L (136-145)
--- NOTE | 2020-06-04 19:47 | CT_ITS ---
STUDY: CT CERVICAL SPINE WITHOUT CONTRAST REASON FOR EXAM: Male, 85 years old. FALL RADIATION DOSAGE (If Supplied By Facility): CTDIvol = ( 26.53 ) mGy, DLP = ( 578.18 ) mGycm TECHNIQUE: High resolution transaxial imaging was performed without contrast material. Sagittal and coronal images were reconstructed. Individualized dose optimization techniques were used for this CT. COMPARISON: None FINDINGS: Normal craniovertebral junction. Normal anterior atlantoaxial articulation. Normal odontoid process. Decreased cervical lordosis. No evidence for acute fracture or subluxation. Incidental finding of lipoma within the spinous process of C2 C2-3: Normal endplates. Normal disc height and morphology. Normal central canal and intervertebral neuroforamina. C3-4: Normal endplates. Normal disc height and morphology. Normal central canal and intervertebral neuroforamina. C4-5: Normal endplates. Normal disc height and morphology. Normal central canal and intervertebral neuroforamina. C5-6: Narrowed disc space and endplate spurring. Mild narrowing of the central canal. Severe left neuroforaminal stenosis and moderate narrowing on the right secondary to bony hypertrophy. C6-7: Narrowed disc space and endplate spurring. Mild narrowing the central canal and impingement upon the cord. Severe bilateral neuroforaminal stenosis secondary to bony hypertrophy C7-T1: Normal endplates. Normal disc height and morphology. Normal central canal and intervertebral neuroforamina. Mild ossification of the nuchal ligament at the level of C5-6. CT/Spine Cervical without Contras IMPRESSION: No evidence for acute fracture or subluxation.. 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
--- NOTE | 2020-06-04 20:00 | RAD_ITS ---
STUDY: X-RAY - PELVIS REASON FOR EXAM: Male, 85 years old. PAIN. PT UNABLE TO TELL US WHERE TECHNIQUE: One view of the pelvis was obtained. COMPARISON: None. FINDINGS: There is a non-specific bowel gas pattern. Normal visualized soft tissue structures. Normal bilateral iliac wings, sacroiliac joints and visualized sacrum. Normal visualized bilateral superior and inferior pubic rami. Normal pubic symphysis. Normal ischial tuberosities. Normal visualized right femoral head. Mildly narrowed joint space with acetabular spurring Normal visualized left femoral head. Mildly narrowed joint space with acetabular spurring RAD/Pelvis 1 or 2 Views IMPRESSION: Degenerative changes of the hips. No acute hip or pelvic fracture Electronically Signed: Adrian Alexander MD at 20:15 EDT , Service support ,
[2020-06-04 20:31] VITALS: BP 154/90; PULSE 75; RESP 22; O2SAT 100
[2020-06-04] MEDS: Haloperidol Lactate 5 MG/ML Vial 2 MG IM (21:19)
[2020-06-04 21:30] VITALS: BP 154/90; PULSE 72; RESP 18; O2SAT 97
--- NOTE | 2020-06-04 21:45 | ED.RN ---
support provided to family. appreciative. offered beverage but denied. daughter going to [facility] to be with pt.
== END 2020-06-04 21:45 | disposition short-term general hospital (02) ==
PROVIDERS: Emergency Provider Emergency Medicine; PCP Nurse Practitioner
DX: S06.5X9A Traumatic subdural hemorrhage with loss of consciousness of unspecified duration, initial encounter (principal); M79.631 Pain in right forearm; W17.89XA Other fall from one level to another, initial encounter; Y93.9 Activity, unspecified; Y92.008 Other place in unspecified non-institutional (private) residence as the place of occurrence of the external cause; Y99.9 Unspecified external cause status; I45.10 Unspecified right bundle-branch block; R60.0 Localized edema; G62.9 Polyneuropathy, unspecified; F03.90 Unspecified dementia, unspecified severity, without behavioral disturbance, psychotic disturbance, mood disturbance, and anxiety; Z79.84 Long term (current) use of oral hypoglycemic drugs; Z79.899 Other long term (current) drug therapy; Z87.891 Personal history of nicotine dependence
CPT/HCPCS: 70450; 71045; 72125; 72170; 80053; 84484; 85025; 85610; 85730; 93005; 96372; 99285; A4216